=== PATIENT | female | born 1980 | race Caucasian/White ===

== ENCOUNTER 2020-05-14 10:39 | Inpatient (IN) | payer OTHER ==
--- NOTE | 2020-05-14 10:56 | BHS.RME ---
Substance Use & Tx History - Substance Use History Alcohol Substance amount: 3 pints whiskey Frequency of use: Daily Substance route: Oral Date of Last Use: 05/13/20 (started age 13) Heroin Substance amount: 12 bags Frequency of use: Daily Substance route: Inhalation (ex: sniffing or snorting) Date of Last Use: 05/13/20 (started age 18) Cocaine-Crack Substance amount: $50 Frequency of use: Daily Substance route: Smoking Date of Last Use: 05/13/20 Marijuana/Hashish Substance amount: 2 pulls Frequency of use: Less than 3 times per week Substance route: Smoking Date of Last Use: 05/11/20 PCP Substance amount: 2 blunts Frequency of use: Less than 3 times per week Substance route: Smoking Date of Last Use: 05/07/20 Nicotine Substance amount: 10 ciggs Frequency of use: Daily Substance route: Smoking Date of Last Use: 05/14/20 Methadone Substance amount: street methadone Frequency of use: Daily Substance route: Oral Date of Last Use: 05/13/20 (since she left the [facility]) Physical/Psych/Mental Status - Behavior General Behavior: Increased activity (restlessness, agitation) Eye Contact: Normal - Cooperativeness Cooperativeness: Cooperative - Thinking Thought Processes: Tight, Logical, Goal Directed - Physical Health Problems Is patient presently having any pain?: No Does patient presently have any injuries (include location): No Does patient currently have a fever: No Is patient : No COWS - Scale Resting Pulse: 0= CO 80 or Below Sweatin= Chills/Flushing Restless Observation: 1= Difficult to Sit Still Pupil Size: 2= Moderately Dilated Bone or Joint Aches: 2= Severe Diffuse Aches Runny Nose/ Eye Tearin= Runny Nose/Eyes GI Upset > 30mins: 3= Vomiting/Diarrhea Tremor Observation: 2= Slight Tremor Visible Yawning Observation: 1= 1-2x During Session Anxiety or Irritability: 4=Extreme Anxiety Goose Flesh Skin: 0=Smooth Skin COWS Score: 18 CIWA Nausea/Vomitin Muscle Tremors: 2 Anxiety: 4-Mod. Anxious/Guarded Agitation: 4-Moderately Restless Paroxysmal Sweats: 5 Orientation: 1-Uncertain about Date Tacttile Disturbances: 0-None Auditory Disturbances: 0-None Visual Disturbances: 0-None Headache: 1-Very Mild CIWA-Ar Total Score: 20
--- OUTSIDE RECORDS SUMMARY | 2020-05-14 11:05 | XMS ---
:1980 Author Organization [facility] Care Team Providers Name Role Phone ED STAFF JUANJO MCCRAY Unavailable Unavailable Emma Galicia Unavailable [phone] Emma Galicia Unavailable [phone] Jerzy Reyna Unavailable [phone] YANI STALEY Unavailable Unavailable ED STAFF PHYSICIAN Unavailable Unavailable ED STAFF PHYSICIAN, STAFF Unavailable Unavailable Bambi PULP BEATER, PULP BEATER Kishore Unavailable [phone] Bambi PULP BEATER, PULP BEATER Kishore Unavailable [phone] CAINFOX GONZALEZ CARLOS Unavailable Unavailable ED STAFF PHYSICIANJOHNATHON Unavailable Unavailable [facility] Unavailable Unavailable Mayela-Murillo, Maria Unavailable [phone] Mayela-Murillo, Maria Unavailable [phone] ANKIT AGUILAR MD Unavailable Unavailable MARIA ISABEL Gómez Unavailable Unavailable MD ALVERTO Unavailable Unavailable AVANI Unavailable Unavailable MD GLEN Unavailable Unavailable Cain QUINTANA Unavailable Unavailable MEENUIGNED Unavailable Unavailable Cornelio Unavailable [phone] Cornelio Unavailable [phone] DIA WILSON Unavailable Unavailable ED STAFF PHYSICIAN Unavailable Unavailable Re-disclosure Warning The records that you are about to access may contain information from federally- assisted alcohol or drug abuse programs. If such information is present, then the following federally mandated warning applies: This information has been disclosed to you from records protected by federal confidentiality rules (42 CFR part 2). The federal rules prohibit you from making any further disclosure of this information unless further disclosure is expressly permitted by the written consent of the person to whom it pertains or as otherwise permitted by 42 CFR part 2. A general authorization for the release of medical or other information is NOT sufficient for this purpose. The Federal rules restrict any use of the information to criminally investigate or prosecute any alcohol or drug abuse patient.The records that you are about to access may contain highly sensitive health information, the redisclosure of which is protected by Article 27-F of the [facility] Public [facility] law. If you continue you may haveaccess to information: Regarding HIV / AIDS; Provided by facilities licensed or operated by the [facility] Office of Mental Health; or Provided by the [facility] Office for People With Developmental Disabilities. If such information is present, then the following [facility] mandated warning applies: This information has been disclosed to you from confidential records which are protected by state law. State law prohibits you from making any further disclosure of this information without the specific written consent of the person to whom it pertains, or as otherwise permitted by law. Any unauthorized further disclosure in violation of state law may result in a fine or senior care sentence or both. A general authorization for the release of medical or other information is NOT sufficient authorization for further disclosure. Encounters Encounter Providers Location Date Indications Data Source(s ) Emergency Attender: JUANJO METCALF H 05/10/2020 [facility] STAFF 10:09:00 AM Medical Taye gómez PHYSICIANAttender: EDT - STAFF ED STAFF 05/10/2020 PHYSICIANAdmitter: 11:59:00 AM [facility]ALL ED STAFF EDT PHYSICIANReferrer: ZUNASSIGNED Patient discharged. OutpatientOFFICE/OUTPATIENT Attender: Positive 04/24/2020 NEXTGEN VISIT, VIMAL Gonzalez Cain Directions 12:50:00 PM ([facility] EDT - [facility] 04/24/2020 Medical 12:50:00 PM Center) EDT Individual Psychotherapy (30 Attender: Positive 04/24/2020 NEXTGEN Min) Jerzy Mayorga Directions 09:41:00 AM ([facility] EDT - [place] 04/24/2020 Medical 09:41:00 AM Center) EDT Emergency Attender: H 04/21/2020 [facility] ED 09:57:00 AM [place] STAFF EDT - Medical PHYSICIANRefe 04/21/2020 Center rrer: STAFF 11:44:00 AM ED STAFF EDT PHYSICIAN Patient discharged. Outpatient Attender: CARLOS H 04/18/2020 [facility] Janak ephalex CAIN ARNABAdmitter: 12:00:00 PM EDT Medical Center CARLOS CAIN CARLOS Attender: Carlos Positive 04/18/2020 NEXTGEN ( [facility] Cain MD Directions 12:00:00 PM EDT [facility] - 04/18/2020 Medical 12:00:00 PM EDT Center) Psychiatric Attender: Jerzy Mayorga Positive 04/18/2020 NEX TGEN ([facility] Diagnostic Axel Directions 09:47:00 AM EDT [facility] Interview (45+ - 04/18/2020 Medical Min) 09:47:00 AM EDT Center) Inpatient Attender: WILLIE SHIN-1D 04/10/2020 [facility] SURVILMASHANYGEORGIEdmitter 04:55:00 PM EDT Hospital : [facility] 04/16/2020 09:59:00 PM EDT Patient discharged. Outpatient ST 04/10/2020 02:41:00 PM EDT - [address] [place] [address] 05:49:00 PM EDT Patient discharged. Emergency Attender: JUANJO ED STAFF H 04/05/2020 10:34:00 AM [facility] PHYSICIANAttender: STAFF ED EDT - 04/05/2020 [facility] STAFF PHYSICIANAdmitter: 01:58:00 PM EDT [facility] ED STAFF PHYSICIAN Patient discharged. Inpatient Attender: KATIE ALVARES H-HAL6 04/03/2020 01:02:00 [facility] ALESSANDRAWAttender: STAFF ED PM EDT - 04/04/2020 [facility] STAFF PHYSICIANAdmitter: 08:00:00 PM EDT KATIE KERNeferrer: KATIE WILSON Patient discharged. Emergency Attender: JOHNATHON ED STAFF H 02/25/2020 04:55:00 PM [facility] PHYSICIANAttender: STAFF ED EDT - 02/25/2020 [facility] STAFF PHYSICIANAdmitter: JOHNATHON 07:11:00 PM EDT ED STAFF PHYSICIAN Patient discharged. Attender: VIVIEN [facility] 01/17/2020 12:09:00 NEXTGEN ([facility] Bambi NPAttender: Clinic PM EDT - 01/17/2020 [facility] Warren Axel 12:09:00 PM EDT Ce nter) Emergency Attender: ED STAFF H 01/11/2020 12:59:00 [facility] PHYSICIANAttender: PM EDT - 01/11/2020 Medical Center STAFF ED STAFF 02:28:00 PM EDT PHYSICIANAdmitter: ED STAFF PHYSICIAN Patient discharged. Emergency Attender: STAFF ED STAFF H 01/05/2020 06:48:00 PM [facility] PHYSICIAN EDT - 01/06/2020 06:48:00 Center AM EDT Patient discharged. Emergency Attender: STAFF ED STAFF 12/27/2019 06:52:00 PM [facility] Medical PHYSICIAN EDT - 12/28/2019 02:57:00 Center AM EDT Patient discharged. [facility] 12/27/2019 NE XTGEN ([facility] 06:18:00 PM EDT - [facility] 12/27/2019 Medical 06:18:00 PM EDT Center) Attender: Jerzy 12/21/2019 Luis Daniel EXT ([facility] 05:22:00 PM EDT - [facility] 12/21/2019 Medical 05:22:00 PM EDT Center) OutpatientOFFICE/ Attender: VIVIEN Novak [facility] 12/19/2019 JOSE ([facility] OUTPATIENT VISITBambi NPAttender: Clinic 01:58:00 PM EDT - [facility] Jerzy Mayorga Axel 12/19/2019 Medical 01:58:00 PM EDT Center) Outpatient Attender: [facility] 11/11/2019 GSI ([facility] 05:00:18 AM EDT [facility]) Patient admitted. Attender: [facility] 10/28/2019 VALERI EN ([facility] 01:59:00 PM EST [facility] Medical 10/28/2019 Center) 01:59:00 PM EST OutpatientOFFICE/ Attender: VIVIEN Novak [facility] 10/28/2019 JOSE ([facility] OUTPATIENT VISITBambi NPAttender: Clinic 11:11:00 AM EST - [facility] Medical [facility] Jerzy Mayorga Axel 10/28/2019 Center) 11:11:00 AM EST Emergency Attender: JUANJO Yee 10/24/2019 [facility] ED STAFF 10:27:00 AM EST - Medical Center PHYSICIANAttender: 10/24/2019 STAFF ED STAFF 12:13:00 PM EST PHYSICIANAdmitter: JUANJO ED STAFF PHYSICIAN Patient discharged. 10/24/2019 12:00:00 AM [facility] Emergency Attender: JUANJO ED H 09/15/2019 03:42:00 AM [facility] Medical STAFF PHYSICIANAttender: EST - 09/15/2019 02:56 :00 Center STAFF ED STAFF PM EST PHYSICIANAdmitter: JUANJO ED STAFF PHYSICIAN Patient discharged. Individual Attender: [facility] 09/07/2019 NEXTGE N ([facility] ([facility] 03:44:00 PM EST - [place] Min) 09/07/2019 Medical 03:44:00 PM [facility]) OutpatientOFFICE/OUTP Attender: Mental Health 08/26/2019 NEXTGEN ([facility], [facility] 11:36:00 AM [facility] Galicia 08/26/2019 Medical 11:36:00 AM [facility]) Outpatient Attender: 08/26/2019 [facility] EMMA 10:05:00 AM [facility] MAIRA ISABEL CARTER RAdmitter: EMMA Gómez Attender: [facility] 08/26/2019 NEXTGE N ([facility] 10:05:00 AM EST - [place] 08/26/2019 Medical 10:05:00 AM [facility]) Initial Eval W/ Med Attender: Mental Health 07/27/2019 NE XTGEN ([facility] 03:22:00 PM EST - [place] 07/27/2019 Medical 03:22:00 PM [facility]) Attender: [facility] 07/22/2019 NEXTGE N ([facility] 10:58:00 AM EST - [place] 07/22/2019 Medical 10:58:00 AM [facility] Center) Individual Attender: [facility] 07/14/2019 NEXTGE N ([facility] ([facility] 10:33:00 AM EST - [place] Min) 07/14/2019 Medical 10:33:00 AM EST Center) Attender: [facility] 07/12/2019 NEXTGE N ([facility] 01:23:00 PM EST - [place] 07/12/2019 Medical 01:23:00 PM EST Center) Emergency Attender: JOHNATHON Yee 07/05/2019 [facility] ED STAFF 08:07:00 PM [facility] PHYSICIANAttender 07/05/2019 : STAFF ED STAFF 09:02:00 PM EST PHYSICIANAdmitter : JOHNATHON ED STAFF PHYSICIAN Patient discharged. Psychiatric Attender: [facility] 06/29/2019 NEXTG EN ([facility] 01:04:00 PM EST - [place] Interview (45+ Min) 06/29/2019 Medic al 01:04:00 PM EST Center) Outpatient Attender: YANI Yee 06/29/2019 [facility] CORNELIO 10:05:00 AM [facility] AURELIOAAdmitter: YANI LOMELI Attender: [facility] 06/29/2019 NEXTGE N ([facility] 10:05:00 AM EST - [place] 06/29/2019 Medical 10:05:00 AM [facility] Center) Emergency Attender: STAFF ED H 06/28/2019 [facility] STAFF PHYSICIAN 10:19:00 PM [facility] 06/29/2019 02:20:00 AM EST Patient discharged. Emergency Admitter: ED STAFF H 06/15/2019 10:38:00 PM [facility] Medical PHYSICIAN EDT - 06/15/2019 11:26:00 Center PM EDT Patient discharged. Emergency H 05/22/2019 04:58:00 PM EDT - [address] [place] [address] 09:45:00 PM EDT Patient discharged. Emergency H 05/10/2019 08:37:00 PM EDT - [address] [place] [address] 12:30:00 AM EDT Patient discharged. Emergency H 04/22/2019 11:18:00 PM EDT - [address] [place] [address] 06:32:00 AM EDT Patient discharged. Emergency H 04/14/2019 04:37:00 AM EDT - [address] [place] [address] 05:31:00 AM EDT Patient discharged. Emergency H 04/06/2019 12:17:00 AM EDT - [facility] 01:37:00 AM EDT Patient discharged. Outpatient Attender: ANKIT SHIN 01/06/2019 01:54:00 PM [facility] JIMENEZdmitter: XUAN EDT - 01/06/2019 [facility] 06:03:00 PM EDT Patient discharged. Outpatient 12/02/2018 11:54:30 AM EDT GSI ([facility]) Outpatient 12/02/2018 11:54:27 AM EDT GS ([facility]) Medications Medication Brand Start Product Dose Route Administrative Pharmacy [facility] Indications Reaction Description Data Name Date Form Instructions Instructions Source(s) Buprenorphi Suboxo SUBLIN active bupre norphin NEXTGEN ne 8 MG / ne 8 2019 {film GUAL e 8 MG / (Alis t Naloxone 2 mg-2 12:00: } naloxone 2 J osephs MG Oral mg 00 AM [facility] sublin EDT Sublingual Center ) [Suboxone] gual Film Suboxone 8 film [Suboxone] mg-2 mg sublingual film Lurasidone Latuda ORAL active lurasido ne NEXTGEN Hydrochlori 60 mg 2019 {tabl hydrochlori d ([facility] de 60 MG tablet 12:00: et} e 60 MG Oral [place] Oral Tablet 00 AM Tablet Medic al [Latuda] EDT [Latuda] Center) Latuda 60 mg tablet aripiprazol Abilif ORAL active aripipr azole NEXTGEN e 15 MG y 15 2019 {tabl 15 MG Oral (Alis t Oral Tablet mg 12:00: et} Tablet [place] phs [Abilify] tablet 00 AM [Abilify] Me dical Abilify 15 EDT Center) mg tablet Sertraline Zoloft .5 ORAL active sertrali ne NEXTGEN 100 MG Oral 100 mg 2019 {tabl 100 MG Ora l (Saint Tablet tablet 12:00: et} Tablet [place] [Zoloft] 00 AM [Zoloft] Medica l Zoloft 100 EDT Center) mg tablet Sertraline Zoloft .5 ORAL complet Sertral ine NEXTGEN 100 MG Oral 100 mg 2019 {tbl} ed 100 MG Ora l (Saint Tablet tablet 12:00: Tablet [place] [Zoloft] 00 AM [Zoloft] Medica l Zoloft 100 [facility] Center) mg tablet aripiprazol Abilif ORAL complet aripip razole NEXTGEN e 15 MG y 15 2019 {tbl} ed 15 MG Oral (Alis t Oral Tablet mg 12:00: Tablet [place] phs [Abilify] tablet 00 AM [Abilify] Ut dicde Abilify 15 [facility]) mg tablet aripiprazol Abilif ORAL complet aripip razole NEXTGEN e 15 MG y 15 2019 {tbl} ed 15 MG Oral (Alis t Oral Tablet mg 12:00: Tablet [place] phs [Abilify] tablet 00 AM [Abilify] [facility] Abilify 15 [facility]) mg tablet Naltrexone naltre ORAL complet take 1 NEXTGEN hydrochlori xone 2019 {tbl} ed tablet by (S aint de 50 MG 50 mg 12:00: oral route Annia sephs Oral Tablet tablet 00 AM every day [facility]) 50 mg tablet Sertraline Zoloft ORAL complet Sertral ine NEXTGEN 100 MG Oral 100 mg 2019 {tbl} ed 100 MG Ora l (Saint Tablet tablet 12:00: Tablet [place] [Zoloft] 00 AM [Zoloft] Medica l Zoloft 100 [facility] Center) mg tablet Naltrexone naltre ORAL complet take 1 NEXTGEN hydrochlori xone 2018 {tbl} ed tablet by (S aint de 50 MG 50 mg 12:00: oral route Annia sephs Oral Tablet tablet 00 AM every day [facility]) 50 mg tablet aripiprazol Abilif ORAL complet aripip razole NEXTGEN e 15 MG y 15 2018 {tbl} ed 15 MG Oral (Alis t Oral Tablet mg 12:00: Tablet [place] ph[facility] [Abilify] tablet 00 AM [Abilify] Ut dical Abilify 15 [facility]) mg tablet Sertraline Zoloft ORAL complet Sertral ine NEXTGEN 100 MG Oral 100 mg 2018 {tbl} ed 100 MG Ora l (Saint Tablet tablet 12:00: Tablet [place] [Zoloft] 00 AM [Zoloft] Medica l Zoloft 100 EST Center) mg tablet Sertraline Zoloft ORAL complet Sertral ine NEXTGEN 25 MG Oral 25 mg 2019 {tbl} ed 25 MG Oral ( Saint Tablet tablet 12:00: Tablet [place] [Zoloft] 00 AM [Zoloft] Medica l Zoloft 25 EST [place]) mg tablet Medication administered onsite Mirtazapine 15 Remeron 15 mg 06/29/2019 1.00 ORAL completed Mirtazapine NEXTGEN MG Oral Tablet tablet 12:00:00 AM {tbl} 15 MG Oral (Saint [Remeron] EST Tablet [place] Remeron 15 mg [Remeron] M edical tablet Center) Sertraline 100 Zoloft 100 mg 06/29/2019 1.00 ORAL completed Sertraline NEXTGEN MG Oral Tablet tablet 12:00:00 AM {tbl} 100 MG Oral (Saint [Zoloft] EST Tablet [place] Zoloft 100 mg [Zoloft] Me dical tablet Center) gabapentin 600 gabapentin 600 06/29/2019 1.00 ORAL completed take 1 NEXTGEN MG Oral Tablet mg tablet 12:00:00 AM {tbl} tablet by ([facility] gabapentin 600 EST oral route 3 [place] mg tablet times every ical day Center) 24 HR Effexor XR 75 06/29/2019 1.00 ORAL completed 24 HR NEXTGEN venlafaxine 75 mg 12:00:00 AM {capsu v enlafaxine ([facility] MG Extended capsule,extend EST le} 75 MG [place] Release Oral ed release Extend ed Medical Capsule Release Oral Cent er) [Effexor] Capsule Effexor XR 75 [Effexor] mg capsule,extend ed release Naltrexone naltrexone 50 06/29/2019 1.00 ORAL completed take 1 NEXTGEN hydrochloride mg tablet 12:00:00 AM {tbl} tablet by ([facility] 50 MG Oral EST oral route Janak ephs Tablet every day Medical naltrexone 50 [place] ) mg tablet Sertraline 100 sertraline 100 2 completed [facility] MG Oral Tablet mg Tablet, [place] sertraline 100 Ordered By: Medical [facility] Ordered By: MDDirections: [facility] Darlin, 2 tablet oral MDDirections: daily 2 tablet oral daily 24 HR venlafaxine 75 1 completed [facility] venlafaxine 75 mg Darin hs MG Extended capsule,extend Medical Release Oral ed release C enter Capsule 24hr, Ordered venlafaxine 75 By: Essanne marie mg Mikesef, capsule,extend MDDirections: ed release 1 capsule oral 24hr, Ordered daily By: Gail Washburn MDDirections: 1 capsule oral daily Mirtazapine 15 mirtazapine 15 1 completed [facility] MG Oral Tablet mg Tablet, [place] mirtazapine 15 Ordered By: Medical mg Tablet, Gail Washburn [place] Ordered By: MDDirections: Gail Washburn, 1 tablet oral MDDirections: daily at 1 tablet oral bedtime daily at bedtime 200 ACTUAT albuterol 2 completed Albuterol 0.09 sulfate 90 mcg [place] MG/ACTUAT HFA Aerosol Med ical Metered Dose Inhaler, Joselito ter Inhaler Ordered By: albuterol Tariq Titsy sulfate 90 mcg Angelina Valente, HFA Aerosol FNPDirections: Inhaler, 2 puff by Ordered By: inhalation Alburtis Titsy every six Angelina Valente, hours PRN FNPDirections: shortness of 2 puff by breath inhalation every six hours PRN shortness of breath aripiprazole aripiprazole 1 completed Abilify (Abilify 30 MG Oral MyCite Janak mccray MyCite) 30 mg Tablet with Medical tablet with Sensor Center sensor and patch, Ordered By: Gail Washburn MDDirections: 1 tablet oral daily olanzapine 10 OLANZapine 10 1 completed [facility] MG Oral Tablet mg Tablet, [place] OLANZapine 10 Ordered By: Medical mg Tablet, Gail Washburn [place] Ordered By: MDDirections: Gail Washburn, 1 tablet oral MDDirections: daily at 1 tablet oral bedtime daily at bedtime gabapentin 300 gabapentin 300 2 completed [facility] MG Oral mg Capsule, Darin hs Capsule Ordered By: Medic al gabapentin 300 Silvano Martin Center mg Capsule, Azucena, Ordered By: MDDirections: Silvano Martin 2 capsule oral Azucena, three times a MDDirections: day 2 capsule oral three times a day Sertraline 50 sertraline 50 3 completed [facility] MG Oral Tablet mg Tablet, [place] sertraline 50 Ordered By: Medical mg Tablet, Johnathon Center Ordered By: Johnathon Hamm MDDirections: Hansel, 3 tablet oral MDDirections: daily on 3 tablet oral waking daily on waking 24 HR venlafaxine 75 1 completed venlafaxine 75 mg Darin hs MG Extended capsule,extend Medical Release Oral ed release C enter Capsule 24hr, Ordered venlafaxine 75 By: Silvano dueñas Zeng, capsule,extend MDDirections: ed release 1 capsule oral 24hr, Ordered daily By: Silvano Zeng, MDDirections: 1 capsule oral daily 24 HR venlafaxine 75 1 completed venlafaxine 75 mg Darin hs MG Extended capsule,extend Medical Release Oral ed release C enter Capsule 24hr, Ordered venlafaxine 75 By: Johnathon Hamm, capsule,extend MDDirections: ed release 1 capsule oral 24hr, Ordered daily By: Johnathon Hamm MDDirections: 1 capsule oral daily 200 ACTUAT albuterol 2 completed Albuterol 0.09 sulfate 90 mcg [place] MG/ACTUAT HFA Aerosol Med ical Metered Dose Inhaler, Joselito ter Inhaler Ordered By: albuterol Silvano Martin sulfate 90 mcg Azucena, HFA Aerosol MDDirections: Inhaler, 2 puff by Ordered By: inhalation Silvano Martin every six Azucena, hours PRN MDDirections: shortness of 2 puff by breath inhalation every six hours PRN shortness of breath Mirtazapine 15 mirtazapine 15 1 completed [facility] MG Oral Tablet mg Tablet, [place] mirtazapine 15 Ordered By: Medical mg TabletSilvano Joselito ter Ordered By: Silvano Zeng MDDirections: Zeng, 1 tablet oral MDDirections: daily at 1 tablet oral bedtime daily at bedtime buspirone busPIRone 10 1 completed [facility] hydrochloride mg Tablet, [place] 10 MG Oral Ordered By: Me dical Tablet Silvano Martin [place] busPIRone 10 Zeng, mg Tablet, MDDirections: Ordered By: 1 tablet oral Silvano Martin three times a MDDirections: 1 tablet oral three times a day Sertraline 100 sertraline 100 2 completed [facility] MG Oral Tablet mg Tablet, [place] sertraline 100 Ordered By: Medical mg TabletSilvano Joselito ter Ordered By: Silvano Zeng MDDirections: Zeng, 2 tablet oral MDDirections: daily at 2 tablet oral bedtime daily at bedtime aripiprazole 5 aripiprazole 5 1 completed [facility] MG Oral Tablet mg TabletTico aripiprazole 5 Ordered By: Medical mg Tablet, Maranda Center Ordered By: Maranda Ortez MDDirections: Pérez, 1 tablet oral MDDirections: daily for mood 1 tablet oral stabilization daily for mood stabilization Insurance Providers Payer name Policy type Policy ID Covered Covered alliance party's Policy P inder / Coverage alliance party ID relationship to [place] [employer] ormation type [place] BLUE CROSS O [id number] BLUE CROSS O [id number] HEALTHPLUS W [id number] 01 [id number] EMPIRE BC BS [id number] SP [id number] HEALTHPLUS W [id number] 01 [id number] HEALTHPLUS W [id number] 01 [id number] SELF PAY 000 Self 000 MEDICAID INP [id number] Self [id number] U REHAB MMC EMPIRE [id number] Self [id number] HEALTH PLUS W [id number] 01 [id number] HEALTHPLUS W [id number] 01 [id number] AMERIGROUP W [id number] 01 [id number] BLUE CROSS [id number] self [id number] BLUE CROSS O [id number] 01 [id number] SELF PAY SP INSURANCE MEDICAID [id number] SP [id number] RW PART C [id number] SP [id number] SELF PAY 00 Self 00 MEDICAID OP [id number] Self [id number] MMC EMPIRE [id number] Self [id number] HEALTH PLUS Problems, Conditions, and Diagnoses Code Display Name Description Problem Type Effective Data Dates Source(s) 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 [facility]) Z53.20 Procedure and PROC/TRTMT NOT CRD Diagnosis 05/10/2020 Sethchinedu blackwell [facility] treatment not OUT BEC PT 10:09:00 AM Medical carried out DECISION FOR RUST EDT Center because of REASONS patient's decision for unspecified reasons Z04.89 ENCOUNTER FOR ENCOUNTER FOR Diagnosis 05/10/2020 [facility] EXAMINATION AND EXAMINATION AND 10:09:00 AM Med ical OBSERVATION FOR OBSERVATION FOR EDT Cent er OTH REASONS OTH REASONS F17.210 Nicotine NICOTINE Diagnosis 04/21/2020 [facility] dependence, DEPENDENCE, 09:57:00 AM Medical cigarettes, CIGARETTES, EDT Center uncomplicated UNCOMPLICATED F11.10 Opioid abuse, OPIOID ABUSE, Diagnosis 04/21/2020 [facility] Annia lofton uncomplicated UNCOMPLICATED 09:57:00 AM Medical EDT Center F31.9 Bipolar disorder, BIPOLAR DISORDER, Diagnosis 04/21/2020 [facility] unspecified UNSPECIFIED 09:57:00 AM Medical EDT Center R40.2410 Rito coma scale RITO COMA SCALE Diagnosis 0 [facility] score 13-15, SCORE 13-15, 10:34:00 AM Medical unspecified time UNSPECIFIED TIME EDT Ce nter F10.10 Alcohol abuse, ALCOHOL ABUSE, Diagnosis 04/05/2020 [facility] uncomplicated UNCOMPLICATED 10:34:00 AM Medical EDT Center F19.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 PSYCHOACTIVE Diagnosis 0 [facility] substance abuse, SUBSTANCE ABUSE, 10:34:00 AM edical uncomplicated UNCOMPLICATED EDT Center J44.9 Chronic CHRONIC Diagnosis 04/04/2020 [facility] obstructive OBSTRUCTIVE 08:00:00 PM Medical pulmonary disease, PULMONARY DISEASE, EDT Center unspecified UNSPECIFIED Y90.2 Blood alcohol BLOOD ALCOHOL Diagnosis 04/04/2020 [facility] Annia lofton level of 40-59 LEVEL OF 40-59 08:00:00 PM Medic al mg/100 ml MG/100 ML EDT Center F10.239 Alcohol dependence ALCOHOL DEPENDENCE Diagnosis 0 [facility] with withdrawal, WITH WITHDRAWAL, 01:02:00 PM edical unspecified UNSPECIFIED EDT Center 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 Diagnosis 0 [facility] with intoxication, WITH INTOXICATION, 04:55:00 PM Medical unspecified UNSPECIFIED EDT Center Y99.9 Unspecified UNSPECIFIED Diagnosis 01/11/2020 [facility] external cause EXTERNAL CAUSE 12:59:00 PM Medic al status STATUS EDT Center Y92.[address] IN UNSP Diagnosis 01/11/2020 [facility] in unspecified NON-INSTITUT 12:59:00 PM Medical non-institutional (PRIVATE) EDT Center (private) RESIDENCE PLACE residence as the place of occurrence of the external cause Y93.89 Activity, other ACTIVITY, OTHER Diagnosis 01/11/2020 Alis Doshi specified SPECIFIED 12:59:00 PM Medical EDT Center W10.9XXA Fall (on) (from) FALL (ON) (FROM) Diagnosis 01/11/2020 Sa jessica Doshi unspecified stairs UNSPECIFIED STAIRS 12:59:00 PM Medical and steps, initial AND STEPS, INIT EDT C enter encounter ENCNTR S93.401A Sprain of SPRAIN OF Diagnosis 01/11/2020 [facility] unspecified UNSPECIFIED 12:59:00 PM Medical ligament of right LIGAMENT OF RIGHT EDT Center ankle, initial ANKLE, INIT ENCNTR encounter F10.129 Alcohol abuse with ALCOHOL ABUSE WITH Diagnosis 0 [facility] intoxication, INTOXICATION, 06:48:00 PM Medical unspecified UNSPECIFIED EDT Center F19.24 Other psychoactive OTH PSYCHOACTIVE Diagnosis 12/27/2019 [facility] substance SUBSTANCE 06:52:00 PM Medical dependence with DEPENDENCE W MOOD EDT Ce nter psychoactive DISORDER substance-induced mood disorder F91.9 Conduct disorder, CONDUCT DISORDER, Diagnosis 12/27/2019 [facility] unspecified UNSPECIFIED 06:52:00 PM Medical EDT Center F10.120 Alcohol abuse with ALCOHOL ABUSE WITH Diagnosis 0 [facility] intoxication, INTOXICATION, 03:42:00 AM Medical uncomplicated UNCOMPLICATED EST Center F14.120 Cocaine abuse with COCAINE ABUSE WITH Diagnosis 0 [facility] intoxication, INTOXICATION, 03:42:00 AM Medical uncomplicated UNCOMPLICATED EST Center F33.2 Major depressive MAJOR DEPRESSV Diagnosis 08/26/2019 Alis Doshi disorder, DISORDER, 10:05:00 AM Medical recurrent severe RECURRENT SEVERE EST Ce nter without psychotic W/O PSYCH FEATURES features Z76.0 Encounter for ENCOUNTER FOR Diagnosis 07/05/2019 [facility] issue of repeat ISSUE OF REPEAT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 dioxide, 22-30 <content [facility] total styleCode="Bold"> [place] [Moles/volume] in Carbon Dioxide Medical Serum or Plasma </content>22 Center MEQ/L<content styleCode="Italic s"> (22-30 MEQ/L)</content> UNK > 60 <content Saint styleCode="Bold"> [place] EGFR </content>73 Medical GFR<content Center styleCode="Italic s"> (> 60 GFR)</content> Creatinine 0.5-1.3 <content Saint [Mass/volume] in styleCode="Bold"> Darin hs Serum or Plasma Creatinine Medical </content>0.9 Center MG/DL<content styleCode="Italic s"> (0.5-1.3 MG/DL)</content> Calcium 8.4-10. <content Saint [Mass/volume] in 2 styleCode="Bold"> Darin hs Serum or Plasma Calcium Medical </content>9.7 Center MG/DL<content styleCode="Italic s"> (8.4-10.2 MG/DL)</content> Glucose 74-106 <content [facility] [Mass/volume] in styleCode="Bold"> Darin hs Serum or Plasma Glucose Medical </content>81 Center MG/DL<content styleCode="Italic s"> (74-106 MG/DL)</content> Aspartate 14-36 <content [facility] aminotransferase styleCode="Bold"> Darin hs [Enzymatic Aspartate Medical activity/volume] Aminotransferase Center in Serum or Plasma (AST) </content>23 IU/L<content styleCode="Italic s"> (14-36 IU/L)</content> Alkaline 38-126 <content [facility] phosphatase styleCode="Bold"> [place] [Enzymatic Alkaline Medical activity/volume] Phosphatase (ALP) Cente r in Serum or Plasma </content>61 IU/L<content styleCode="Italic s"> (38-126 IU/L)</content> Alanine 7-30 <content [facility] aminotransferase styleCode="Bold"> Darin hs [Enzymatic Alanine Medical activity/volume] Aminotransferase Center in Serum or Plasma (ALT) </content>11 IU/L<content styleCode="Italic s"> (7-30 IU/L)</content> Bilirubin.total 0.2-1.3 <content [facility] [Mass/volume] in styleCode="Bold"> Darin hs Serum or Plasma Bilirubin Total Medical </content>0.4 Center MG/DL<content styleCode="Italic s"> (0.2-1.3 MG/DL)</content> Albumin 3.5-5.0 <content Saint [Mass/volume] in styleCode="Bold"> Darin hs Serum or Plasma Albumin Medical </content>4.8 Center G/DL<content styleCode="Italic s"> (3.5-5.0 G/DL)</content> ID Date Data Source [id number] 04/03/2020 12:00:00 AM EDT [facility] Name Value Range Interpretation Code Description Data Layne rce(s) Supporting Document(s ) 2019-nCoV [facility] RNA XXX GUTIERREZ+probe- Imp This lab was ordered by [facility] and reported by [employer] NTD. ID Date Data Source Urinalysis.[id number] 12/27/2019 09:40:00 PM EDT [facility] 0 Name Value Range Interpretation Description Data Sup porting Code Source(s) Document(s ) UNK CLEAR <content Saint styleCode="Jonatan [place] d">Urine Medical Clarity Center </content>HAZY <content styleCode="Emily lics"> (CLEAR )</content> Color of Urine YELLOW <content Saint styleCode="Jonatan [place] d">Color, Medical Urine Center </content>YELL OW <content styleCode="Emily lics"> (YELLOW )</content> Glucose NEGATIVE <content Saint [Mass/volume] styleCode="Jonatan [place] in Urine by d">Urine Medical Test strip Glucose Center </content>NEGA TIVE MG/DL<content styleCode="Emily lics"> (NEGATIVE MG/DL)</conten t> UNK NEGATIVE <content Saint styleCode="Jonatan [place] d">Urine Medical Bilirubin Center </content>NEGA TIVE <content styleCode="Emily lics"> (NEGATIVE )</content> Ketones NEGATIVE <content Saint [Mass/volume] styleCode="Jonatan [place] in Urine by d">Urine Medical Test strip Ketone Center </content>NEGA TIVE MG/DL<content styleCode="Emily lics"> (NEGATIVE MG/DL)</conten t> pH of Urine by 4.5-8.0 <content [facility] Test strip styleCode="Jonatan [place] d">Urine pH Medical </content>6.0 Center <content styleCode="Emily lics"> (4.5-8.0 )</content> Specific 1.015-1.02 Below low normal <content [facility] gravity of 5 styleCode="Jonatan [place] Urine by Test d">Urine Medical strip Specific Center [place] </content><= 1.005 L<content styleCode="Emily lics"> (1.015-1.025 )</content> Hemoglobin NEGATIVE <content Saint [Presence] in styleCode="Jonatan [place] Urine by Test d">Urine Blood Medical strip </content>LARG Center E <content styleCode="Emily lics"> (NEGATIVE )</content> UNK 0-3 <content Saint styleCode="Jonatan [place] d">Urine Red Medical Blood Cell Center </content>3-5 HPF<content styleCode="Emily lics"> (0-3 HPF)</content> Nitrite NEGATIVE <content Saint [Presence] in styleCode="Jonatan Doshi Urine by Test d">Urine Medical strip Nitrite Center </content>NEGA TIVE <content styleCode="Emily lics"> (NEGATIVE )</content> Protein NEGATIVE <content Saint [Mass/volume] styleCode="Jonatan Claires in Urine by d">Urine Medical Test strip Protein Center </content>NEGA TIVE MG/DL<content styleCode="Emily lics"> (NEGATIVE MG/DL)</conten t> Urobilinogen 0.2-1.0 <content Saint [Units/volume] styleCode="Jonatan Claires in Urine by d">Urine Medical Test strip Urobilinogen Center </content>0.2 MG/DL<content styleCode="Emily lics"> (0.2-1.0 MG/DL)</conten t> Leukocyte NEGATIVE <content [facility] esterase styleCode="Jonatan Doshi [Presence] in d">Urine Medical Urine by Test Leukocyte Center strip </content>NEGA TIVE <content styleCode="Emily lics"> (NEGATIVE )</content> UNK 0-3 <content Saint styleCode="Jonatan Claires d">Urine White Medical Blood Cell Center </content>0-3 HPF<content styleCode="Emily lics"> (0-3 HPF)</content> UNK NONE SEEN <content Saint styleCode="Jonatan [place] d">Epithelial Medical Cell Center </content>5 - 10 HPF<content styleCode="Emily lics"> (NONE SEEN HPF)</content> ID Date Data Source [facility].[id number] 12/27/2019 09:40:00 PM EDT [facility] -0400 Name Value Range Interpretation Description Data Sup porting Code Source(s) Document(s ) Cannabinoids <content Saint [Presence] in styleCode="Jonatan Doshi Urine by Screen d">Cannabinoid Medical method >50 ng/mL s Center </content>NEGA TIVE NG/ML (Reference Range: not available)<br/ > ID Date Data Source Liver 12/27/2019 09:35:[address] [facility] Profile.[id number] Name Value Range Interpretation Description Data Sup porting Code Source(s) Document(s ) UNK 0.0-0.3 <content Saint styleCode="Bold"> [place] Bilirubin, Direct Medical </content>< 0.2 Center MG/DL<content styleCode="Italic s"> (0.0-0.3 MG/DL)</content> Aspartate 14-36 <content [facility] aminotransferase styleCode="Bold"> Darin hs [Enzymatic Aspartate Medical activity/volume] Aminotransferase Center in Serum or Plasma (AST) </content>25 IU/L<content styleCode="Italic s"> (14-36 IU/L)</content> Alanine 7-30 <content [facility] aminotransferase styleCode="Bold"> Darin hs [Enzymatic Alanine Medical activity/volume] Aminotransferase Center in Serum or Plasma (ALT) </content>11 IU/L<content styleCode="Italic s"> (7-30 IU/L)</content> Bilirubin.total 0.2-1.3 Below low <content Saint [Mass/volume] in normal styleCode="Bold"> Darin hs Serum or Plasma Bilirubin Total Medical </content>< 0.2 Center MG/DL L<content styleCode="Italic s"> (0.2-1.3 MG/DL)</content> Alkaline 38-126 <content [facility] phosphatase styleCode="Bold"> [place] [Enzymatic Alkaline Medical activity/volume] Phosphatase (ALP) Cente r in Serum or Plasma </content>63 IU/L<content styleCode="Italic s"> (38-126 IU/L)</content> Albumin 3.5-5.0 <content [facility] [Mass/volume] in styleCode="Bold"> Darin hs Serum or Plasma Albumin Medical </content>4.7 Center G/DL<content styleCode="Italic s"> (3.5-5.0 G/DL)</content> ID Date Data Source HematologyRou.[id number] 12/27/2019 09:35:00 PM EDT [facility] 0400 Name Value Range Interpretation Description Data Sup porting Code Source(s) Document(s ) Leukocytes 4.4-11.0 <content [facility] [#/volume] in styleCode="Bold [place] Blood by ">White Blood Medical Automated count Cell Count Center </content>10.87 KCUMM<content styleCode="Ital ics"> (4.4-11.0 KCUMM)</content > Erythrocyte mean 80.0-100 <content [facility] corpuscular .0 styleCode="Bold [place] volume [Entitic ">Mean Medical volume] by Corpuscular Center Automated count Volume </content>87.6 FL<content styleCode="Ital ics"> (80.0-100.0 FL)</content> Hemoglobin 12.3-16. <content Saint [Mass/volume] in 0 styleCode="Bold [place] Blood ">Hemoglobin Medical </content>12.7 Center G/DL<content styleCode="Ital ics"> (12.3-16.0 G/DL)</content> Erythrocytes 4.0-5.1 <content [facility] [#/volume] in styleCode="[place]old [place] Blood by ">Red Blood Medical Automated count Cell Count Center </content>4.27 MCUMM<content styleCode="Ital ics"> (4.0-5.1 MCUMM)</content > Erythrocyte mean 26.0-34. <content [facility] corpuscular 0 styleCode="Bold [place] hemoglobin ">Mean Medical [Entitic mass] Corposcular Center by Automated Hemoglobin count </content>29.7 PG<content styleCode="Ital ics"> (26.0-34.0 PG)</content> Hematocrit 36.0-46. <content Saint [Volume 0 styleCode="[place]old [place] Fraction] of ">Hematocrit Medical Blood by </content>37.4 Center Automated count %<content styleCode="Ital ics"> (36.0-46.0 %)</content> Erythrocyte mean 32.0-37. <content [facility] corpuscular 0 styleCode="Bold [place] hemoglobin ">Mean Corpus. Medical concentration Hgb Center [Mass/volume] by Concentration Automated count (MCHC) </content>34.0 G/DL<content styleCode="Ital ics"> (32.0-37.0 G/DL)</content> Platelet mean 8.0-11.0 <content [facility] volume [Entitic styleCode="[place]old [place] volume] in Blood ">Mean Platelet Medical by Automated Volume Center count </content>10.1 FL<content styleCode="Ital ics"> (8.0-11.0 FL)</content> Platelets 130-400 <content Saint [#/volume] in styleCode="[place]old [place] Blood by ">Platelet Medical Automated count Count Center </content>227 KCUMM<content styleCode="Ital ics"> (130-400 KCUMM)</content > UNK 0 <content Saint styleCode="Bold [place] ">Nucleated Red Medical Blood Cell Center </content>0.0 /100<content styleCode="Ital ics"> (0 /100)</content> Erythrocyte 11.5-14. <content Saint distribution 5 styleCode="[place]old [place] width [Ratio] by ">Red Cell Medical Automated count Distribution Center Width </content>13.8 %<content styleCode="Ital ics"> (11.5-14.5 %)</content> UNK 0.0 <content Saint styleCode="Bold [place] ">Nucleated Red Medical Blood Cell Center Count </content>0.00 KCUMM<content styleCode="Ital ics"> (0.0 KCUMM)</content > ID Date Data Source GFR(Creatinine).[id number] 12/27/2019 09:35:00 PM EDT [facility] 0-0400 Name Value Range Interpretation Code Description Data Layne rce(s) Supporting Document(s ) UNK > 60 Below low normal <content [facility] styleCode="Bold"> Medical Cent er EGFR </content>58 GFR L<content styleCode="Italic s"> (> 60 GFR)</content> ID Date Data Source BMP.[id number] 12/27/2019 09:35:00 PM EDT [facility] Name Value Range Interpretation Description Data Sup porting Code Source(s) Document(s ) Potassium 3.5-5.3 <content Saint [Moles/volume] in styleCode="Bold"> Celso phs Serum or Plasma Potassium Medical </content>4.1 Center MEQ/L<content styleCode="Italic s"> (3.5-5.3 MEQ/L)</content> Sodium 137-145 <content Saint [Moles/volume] in styleCode="Bold"> Celso [facility] Serum or Plasma Sodium Medical </content>140 Center MEQ/L<content styleCode="Italic s"> (137-145 MEQ/L)</content> Creatinine 0.5-1.3 <content Saint [Mass/volume] in styleCode="Bold"> Darin hs Serum or Plasma Creatinine Medical </content>1.1 Center MG/DL<content styleCode="Italic s"> (0.5-1.3 MG/DL)</content> Chloride 98-107 <content Saint [Moles/volume] in styleCode="Bold"> Celso [facility] Serum or Plasma Chloride Medical </content>106 Center MEQ/L<content styleCode="Italic s"> (98-107 MEQ/L)</content> UNK 7-17 <content Saint styleCode="Bold"> [place] BUN </content>13 Medical MG/DL<content Center styleCode="Italic s"> (7-17 MG/DL)</content> Carbon dioxide, 22-30 Below low <content Saint total normal styleCode="Bold"> [place] [Moles/volume] in Carbon Dioxide Medical Serum or Plasma </content>21 Center MEQ/L L<content styleCode="Italic s"> (22-30 MEQ/L)</content> Calcium 8.4-10. <content Saint [Mass/volume] in 2 styleCode="Bold"> Darin hs Serum or Plasma Calcium Medical </content>9.3 Center MG/DL<content styleCode="Italic s"> (8.4-10.2 MG/DL)</content> Glucose 74-106 <content Saint [Mass/volume] in styleCode="Bold"> Darin hs Serum or Plasma Glucose Medical </content>98 Center MG/DL<content styleCode="Italic s"> (74-106 MG/DL)</content> Alanine 7-30 <content [facility] aminotransferase styleCode="Bold"> Darin hs [Enzymatic Alanine Medical activity/volume] Aminotransferase Center in Serum or Plasma (ALT) </content>11 IU/L<content styleCode="Italic s"> (7-30 IU/L)</content> UNK > 60 Below low <content Saint normal styleCode="Bold"> [facility] EGFR </content>58 Medical GFR L<content Center styleCode="Italic s"> (> 60 GFR)</content> Alkaline 38-126 <content Saint phosphatase styleCode="Bold"> [facility] [Enzymatic Alkaline Medical activity/volume] Phosphatase (ALP) Cente r in Serum or Plasma </content>63 IU/L<content styleCode="Italic s"> (38-126 IU/L)</content> Aspartate 14-36 <content [facility] aminotransferase styleCode="Bold"> Darin hs [Enzymatic Aspartate Medical activity/volume] Aminotransferase Center in Serum or Plasma (AST) </content>25 IU/L<content styleCode="Italic s"> (14-36 IU/L)</content> Bilirubin.total 0.2-1.3 Below low <content [facility] [Mass/volume] in normal styleCode="Bold"> Darin hs Serum or Plasma Bilirubin Total Medical </content>< 0.2 Center MG/DL L<content styleCode="Italic s"> (0.2-1.3 MG/DL)</content> Albumin 3.5-5.0 <content Saint [Mass/volume] in styleCode="Bold"> Darin hs Serum or Plasma Albumin Medical </content>4.7 Center G/DL<content styleCode="Italic s"> (3.5-5.0 G/DL)</content> ID Date Data Source Urinalysis.[id number] 09/15/2019 06:00:00 AM [facility] 0 Name Value Range Interpretation Description Data Sup porting Code Source(s) Document(s ) Color of Urine YELLOW <content Saint styleCode="Jonatan Claires d">Color, Medical Urine Center </content>RED <content styleCode="Emily lics"> (YELLOW )</content> Specific 1.015-1.02 Below low normal <content Saint gravity of 5 styleCode="Jonatan Doshi Urine by Test d">Urine Medical strip Specific Center [place] </content><= 1.005 L<content styleCode="Emily lics"> (1.015-1.025 )</content> UNK CLEAR <content Saint styleCode="Jonatan [place] d">Urine Medical Clarity Center </content>Sl CLOUDY <content styleCode="Emily lics"> (CLEAR )</content> UNK NEGATIVE <content Saint styleCode="Jonatan Claires d">Urine Medical Bilirubin Center </content>NEGA TIVE <content styleCode="Emily lics"> (NEGATIVE )</content> Glucose NEGATIVE <content Saint [Mass/volume] styleCode="Jonatan Doshi in Urine by d">Urine Medical Test strip Glucose Center </content>NEGA TIVE MG/DL<content styleCode="Emily lics"> (NEGATIVE MG/DL)</conten t> Ketones NEGATIVE <content Saint [Mass/volume] styleCode="Jonatan Claires in Urine by d">Urine Medical Test strip Ketone Center </content>NEGA TIVE MG/DL<content styleCode="Emily lics"> (NEGATIVE MG/DL)</conten t> Urobilinogen 0.2-1.0 <content Saint [Units/volume] styleCode="Jonatan Claires in Urine by d">Urine Medical Test strip Urobilinogen Center </content>0.2 MG/DL<content styleCode="Emily lics"> (0.2-1.0 MG/DL)</conten t> Nitrite NEGATIVE <content Saint [Presence] in styleCode="Jonatan Claires Urine by Test d">Urine Medical strip Nitrite Center </content>NEGA TIVE <content styleCode="Emily lics"> (NEGATIVE )</content> Hemoglobin NEGATIVE <content Saint [Presence] in styleCode="Jonatan Doshi Urine by Test d">Urine Blood Medical strip </content>LARG Center E <content styleCode="Emily lics"> (NEGATIVE )</content> pH of Urine by 4.5-8.0 <content Saint Test strip styleCode="Jonatan Claires d">Urine pH Medical </content>5.5 Center <content styleCode="Emily lics"> (4.5-8.0 )</content> Protein NEGATIVE <content Saint [Mass/volume] styleCode="Jonatan Doshi in Urine by d">Urine Medical Test strip Protein Center </content>30 MG/DL<content styleCode="Emily lics"> (NEGATIVE MG/DL)</conten t> UNK 0-3 <content Saint styleCode="Jonatan [place] d">Urine White Medical Blood Cell Center </content>5 - 10 HPF<content styleCode="Emily lics"> (0-3 HPF)</content> Leukocyte NEGATIVE <content Saint esterase styleCode="Jonatan Doshi [Presence] in d">Urine Medical Urine by Test Leukocyte Center strip </content>TRAC E <content styleCode="Emily lics"> (NEGATIVE )</content> UNK NONE SEEN <content Saint styleCode="Jonatan [place] d">Epithelial Medical Cell Center </content>10 - 20 HPF<content styleCode="Emily lics"> (NONE SEEN HPF)</content> UNK 0-3 <content Saint styleCode="Jonatan [place] d">Urine Red Medical Blood Cell Center </content>100- 200 HPF<content styleCode="Emily lics"> (0-3 HPF)</content> ID Date Data Source Microbiology.[id number] 09/15/2019 06:00:00 AM EST [facility] 500 Name Value Range Interpretation Code Description Data Layne rce(s) Supporting Document(s ) UNK <item><content [facility] styleCode="Bold"> Medical Cent er Culture Report </content>
<t able><tbody><tr>< td>Specimen Number:</td><td>[id number]</td></tr ><tr><td>Sample Collection Date/Time: </td><td> 0 6:00 AM</td></tr><tr>< td>Specimen Source:</td><td>U RINE</td></tr><tr ><td>Urine Culture:</td><td> Collection Plate Date: 09/15/2019 06:09 </td></tr><tr><td >Culture Status:</td><td>P reliminary </td></tr><tr><td >Culture Report:</td><td>C ulture in progress </td></tr></tbody ></table></item> UNK <item><content [facility] styleCode="Bold"> [facility] Culture Status </content>
<t able><tbody><tr>< td>Specimen Number:</td><td>[id number]</td></tr ><tr><td>Sample Collection Date/Time: </td><td> 0 6:00 AM</td></tr><tr>< td>Specimen Source:</td><td>U RINE</td></tr><tr ><td>Culture Status:</td><td>P reliminary </td></tr><tr><td >Culture Report:</td><td>C ulture in progress </td></tr><tr><td >Urine Culture:</td><td> Collection Plate Date: 09/15/2019 06:09 </td></tr></tbody ></table></item> ID Date Data Source Liver 09/15/2019 06:00:[address] [facility] Profile.[id number] Name Value Range Interpretation Description Data Sup porting Code Source(s) Document(s ) Bilirubin.total 0.2-1.3 Below low <content Saint [Mass/volume] in normal styleCode="Bold"> Darin hs Serum or Plasma Bilirubin Total Medical </content>< 0.2 Center MG/DL L<content styleCode="Italic s"> (0.2-1.3 MG/DL)</content> Alanine 7-30 <content Saint aminotransferase styleCode="Bold"> Darin hs [Enzymatic Alanine Medical activity/volume] Aminotransferase Center in Serum or Plasma (ALT) </content>13 IU/L<content styleCode="Italic s"> (7-30 IU/L)</content> Aspartate 14-36 <content [facility] aminotransferase styleCode="Bold"> Darin hs [Enzymatic Aspartate Medical activity/volume] Aminotransferase Center in Serum or Plasma (AST) </content>29 IU/L<content styleCode="Italic s"> (14-36 IU/L)</content> Alkaline 38-126 <content Saint phosphatase styleCode="Bold"> [facility] [Enzymatic Alkaline Medical activity/volume] Phosphatase (ALP) Cente r in Serum or Plasma </content>57 IU/L<content styleCode="Italic s"> (38-126 IU/L)</content> Albumin 3.5-5.0 <content Saint [Mass/volume] in styleCode="Bold"> Darin hs Serum or Plasma Albumin Medical </content>4.2 Center G/DL<content styleCode="Italic s"> (3.5-5.0 G/DL)</content> UNK 0.0-0.3 <content Saint styleCode="Bold"> [facility] Bilirubin, Direct Medical </content>< 0.2 Center MG/DL<content styleCode="Italic s"> (0.0-0.3 MG/DL)</content> ID Date Data Source HematologyRou.[id number] 09/15/2019 06:00:00 AM [facility] 0500 Name Value Range Interpretation Description Data Sup porting Code Source(s) Document(s ) Leukocytes 4.4-11.0 <content Saint [#/volume] in styleCode="Bold [place] Blood by ">White Blood Medical Automated count Cell Count Center </content>10.22 KCUMM<content styleCode="Ital ics"> (4.4-11.0 KCUMM)</content > Erythrocyte mean 26.0-34. <content [facility] corpuscular 0 styleCode="Bold [place] hemoglobin ">Mean Medical [Entitic mass] Corposcular Center by Automated Hemoglobin count </content>30.1 PG<content styleCode="Ital ics"> (26.0-34.0 PG)</content> Erythrocyte mean 80.0-100 <content [facility] corpuscular .0 styleCode="Bold [place] volume [Entitic ">Mean Medical volume] by Corpuscular Center Automated count Volume </content>88.9 FL<content styleCode="Ital ics"> (80.0-100.0 FL)</content> Erythrocytes 4.0-5.1 Below low normal <content Saint [#/volume] in styleCode="Bold [place] Blood by ">Red Blood Medical Automated count Cell Count Center </content>3.89 MCUMM L<content styleCode="Ital ics"> (4.0-5.1 MCUMM)</content > Hemoglobin 12.3-16. Below low normal <content Saint [Mass/volume] in 0 styleCode="Bold [place] Blood ">Hemoglobin Medical </content>11.7 Center G/DL L<content styleCode="Ital ics"> (12.3-16.0 G/DL)</content> Hematocrit 36.0-46. Below low normal <content Saint [Volume 0 styleCode="Bold [place] Fraction] of ">Hematocrit Medical Blood by </content>34.6 Center Automated count % L<content styleCode="Ital ics"> (36.0-46.0 %)</content> Erythrocyte mean 32.0-37. <content [facility] corpuscular 0 styleCode="Bold [place] hemoglobin ">Mean Corpus. Medical concentration Hgb Center [Mass/volume] by Concentration Automated count (MCHC) </content>33.8 G/DL<content styleCode="Ital ics"> (32.0-37.0 G/DL)</content> Platelet mean 8.0-11.0 <content Saint volume [Entitic styleCode="Bold [place] volume] in Blood ">Mean Platelet Medical by Automated Volume Center count </content>10.4 FL<content styleCode="Ital ics"> (8.0-11.0 FL)</content> UNK 0 <content Saint styleCode="Bold [place] ">Nucleated Red Medical Blood Cell Center </content>0.0 /100<content styleCode="Ital ics"> (0 /100)</content> Erythrocyte 11.5-14. <content Saint distribution 5 styleCode="[place]old [place] width [Ratio] by ">Red Cell Medical Automated count Distribution Center Width </content>12.9 %<content styleCode="Ital ics"> (11.5-14.5 %)</content> Platelets 130-400 <content Saint [#/volume] in styleCode="[place]old [place] Blood by ">Platelet Medical Automated count Count Center </content>236 KCUMM<content styleCode="Ital ics"> (130-400 KCUMM)</content > UNK 0.0 <content [facility] styleCode="B[facility] [place] ">Nucleated Red Medical Blood Cell Center Count </content>0.00 KCUMM<content styleCode="Ital ics"> (0.0 KCUMM)</content > ID Date Data Source GFR(Creatinine).[id number] 09/15/2019 06:00:00 AM [facility] 0-0500 Name Value Range Interpretation Code Description Data Layne rce(s) Supporting Document(s ) UNK > 60 <content [facility] [place] styleCode="Bold"> Medical Cent er EGFR </content>84 GFR<content styleCode="Italic s"> (> 60 GFR)</content> ID Date Data Source CHMROUTINECCDA.[id number] 09/15/2019 06:00:00 AM [facility] -0500 Name Value Range Interpretation Description Data Sup porting Code Source(s) Document(s ) Cannabinoids <content [facility] [Presence] in styleCode="Jonatan [place] Urine by Screen d">Cannabinoid Medical method >50 ng/mL s Center </content>NEGA TIVE NG/ML (Reference Range: not available)<br/ > ID Date Data Source [facility].[id number] 09/15/2019 06:00:00 AM EST [facility] Name Value Range Interpretation Description Data Sup porting Code Source(s) Document(s ) Chloride 98-107 Above high <content [facility] [Moles/volume] in normal styleCode="Bold"> [facility] Serum or Plasma Chloride Medical </content>108 Center MEQ/L H<content styleCode="Italic s"> (98-107 MEQ/L)</content> Potassium 3.5-5.3 <content [facility] [Moles/volume] in styleCode="Bold"> [facility] Serum or Plasma Potassium Medical </content>3.8 Center MEQ/L<content styleCode="Italic s"> (3.5-5.3 MEQ/L)</content> Sodium 137-145 <content [facility] [Moles/volume] in styleCode="Bold"> [facility] Serum or Plasma Sodium Medical </content>141 Center MEQ/L<content styleCode="Italic s"> (137-145 MEQ/L)</content> Creatinine 0.5-1.3 <content [facility] [Mass/volume] in styleCode="Bold"> Dar[facility] hs Serum or Plasma Creatinine Medical </content>0.8 Center MG/DL<content styleCode="Italic s"> (0.5-1.3 MG/DL)</content> UNK > 60 <content [facility] styleCode="Bold"> [place] EGFR </content>84 Medical GFR<content Center styleCode="Italic s"> (> 60 GFR)</content> Carbon dioxide, 22-30 <content [facility] total styleCode="Bold"> [place] [Moles/volume] in Carbon Dioxide Medical Serum or Plasma </content>22 Center MEQ/L<content styleCode="Italic s"> (22-30 MEQ/L)</content> Glucose 74-106 Above high <content [facility] [Mass/volume] in normal styleCode="Bold"> [facility] hs Serum or Plasma Glucose Medical </content>107 Center MG/DL H<content styleCode="Italic s"> (74-106 MG/DL)</content> Calcium 8.4-10. <content [facility] [Mass/volume] in 2 styleCode="Bold"> [facility] hs Serum or Plasma Calcium Medical </content>9.1 Center MG/DL<content styleCode="Italic s"> (8.4-10.2 MG/DL)</content> UNK 7-17 <content [facility] styleCode="Bold"> [place] BUN </content>13 Medical MG/DL<content Center styleCode="Italic s"> (7-17 MG/DL)</content> Alanine 7-30 <content [facility] aminotransferase styleCode="Bold"> Dar[place] hs [Enzymatic Alanine Medical activity/volume] Aminotransferase Center in Serum or Plasma (ALT) </content>13 IU/L<content styleCode="Italic s"> (7-30 IU/L)</content> Aspartate 14-36 <content [facility] aminotransferase styleCode="Bold"> Dar[place] hs [Enzymatic Aspartate Medical activity/volume] Aminotransferase Center in Serum or Plasma (AST) </content>29 IU/L<content styleCode="Italic s"> (14-36 IU/L)</content> Alkaline 38-126 <content [facility] phosphatase styleCode="Bold"> [place] [Enzymatic Alkaline Medical activity/volume] Phosphatase (ALP) Cente r in Serum or Plasma </content>57 IU/L<content styleCode="Italic s"> (38-126 IU/L)</content> Albumin 3.5-5.0 <content [facility] [Mass/volume] in styleCode="Bold"> [facility] hs Serum or Plasma Albumin Medical </content>4.2 Center G/DL<content styleCode="Italic s"> (3.5-5.0 G/DL)</content> Bilirubin.total 0.2-1.3 Below low <content [facility] [Mass/volume] in normal styleCode="Bold"> [place] hs Serum or Plasma Bilirubin Total Medical </content>< 0.2 Center MG/DL L<content styleCode="Italic s"> (0.2-1.3 MG/DL)</content> ID Date Data Source Urinalysis.[id number] 05/10/2019 09:15:00 PM EDT [facility] 0 Name Value Range Interpretation Description Data Sup porting Code Source(s) Document(s ) Glucose NEGATIVE <content [facility] [Mass/volume] styleCode="Jonatan Doshi in Urine by d">Urine Medical Test strip Glucose Center </content>NEGA TIVE MG/DL<content styleCode="Emily lics"> (NEGATIVE MG/DL)</conten t> UNK CLEAR <content Saint styleCode="[facility] d">Urine Medical Clarity Center </content>EDU R <content styleCode="Emily lics"> (CLEAR )</content> Ketones NEGATIVE <content [facility] [Mass/volume] styleCode="Jonatan Doshi in Urine by d">Urine Medical Test strip Ketone Center </content>NEGA TIVE MG/DL<content styleCode="Emily lics"> (NEGATIVE MG/DL)</conten t> Color of Urine YELLOW <content Saint styleCode="[facility] d">Color, Medical Urine Center </content>YELL OW <content styleCode="Emily lics"> (YELLOW )</content> UNK NEGATIVE <content [facility] styleCode="Jonatan Claires d">Urine Medical Bilirubin Center </content>NEGA TIVE <content styleCode="Emily lics"> (NEGATIVE )</content> Specific 1.015-1.02 Below low normal <content [facility] gravity of 5 styleCode="Jonatan Doshi Urine by Test d">Urine Medical strip Specific Center [place] </content><= 1.005 L<content styleCode="Emily lics"> (1.015-1.025 )</content> Hemoglobin NEGATIVE <content [facility] [Presence] in styleCode="Jonatan Doshi Urine by Test d">Urine Blood Medical strip </content>TRAC Center E <content styleCode="Emily lics"> (NEGATIVE )</content> pH of Urine by 4.5-8.0 <content [facility] Test strip styleCode="Jonatan Claires d">Urine pH Medical </content>6.5 Center <content styleCode="Emily lics"> (4.5-8.0 )</content> Nitrite NEGATIVE <content [facility] [Presence] in styleCode="Jonatan Doshi Urine by Test d">Urine Medical strip Nitrite Center </content>NEGA TIVE <content styleCode="Emily lics"> (NEGATIVE )</content> Urobilinogen 0.2-1.0 <content [facility] [Units/volume] styleCode="Jonatan Claires in Urine by d">Urine Medical Test strip Urobilinogen Center </content>0.2 MG/DL<content styleCode="Emily lics"> (0.2-1.0 MG/DL)</conten t> Protein NEGATIVE <content [facility] [Mass/volume] styleCode="Jonatan Doshi in Urine by d">Urine Medical Test strip Protein Center </content>NEGA TIVE MG/DL<content styleCode="Emily lics"> (NEGATIVE MG/DL)</conten t> Leukocyte NEGATIVE <content [facility] esterase styleCode="Jonatan Doshi [Presence] in d">Urine Medical Urine by Test Leukocyte Center strip </content>NEGA TIVE <content styleCode="Emily lics"> (NEGATIVE )</content> UNK 0-3 <content Saint styleCode="[facility] d">Urine Red Medical Blood Cell Center </content>0-3 HPF<content styleCode="Emily lics"> (0-3 HPF)</content> UNK <content Saint styleCode="Jonatan Claires d">Epithelial Medical Cell Center </content>2-5 LPF (Reference Range: not available)<br/ > ID Date Data Source CHMROUTINECCDA.[id number] 05/10/2019 09:15:00 PM EDT [facility] -0400 Name Value Range Interpretation Description Data Sup porting Code Source(s) Document(s ) Cannabinoids <content [facility] [Presence] in styleCode="Jonatan Doshi Urine by Screen d">Cannabinoid Medical method >50 ng/mL s Center </content>NEGA TIVE NG/ML (Reference Range: not available)<br/ > ID Date Data Source Liver 05/10/2019 09:08:[address] [facility] Profile.[id number] Name Value Range Interpretation Description Data Sup porting Code Source(s) Document(s ) Aspartate 14-36 <content [facility] aminotransferase styleCode="Bold"> Darin hs [Enzymatic Aspartate Medical activity/volume] Aminotransferase Center in Serum or Plasma (AST) </content>29 IU/L<content styleCode="Italic s"> (14-36 IU/L)</content> Bilirubin.total 0.2-1.3 <content [facility] [Mass/volume] in styleCode="Bold"> Dar[place] hs Serum or Plasma Bilirubin Total Medical </content>0.4 Center MG/DL<content styleCode="Italic s"> (0.2-1.3 MG/DL)</content> Alkaline 38-126 <content [facility] phosphatase styleCode="Bold"> [place] [Enzymatic Alkaline Medical activity/volume] Phosphatase (ALP) Cente r in Serum or Plasma </content>66 IU/L<content styleCode="Italic s"> (38-126 IU/L)</content> UNK 0.0-0.3 <content [facility] styleCode="Bold"> [place] Bilirubin, Direct Medical </content>< 0.2 Center MG/DL<content styleCode="Italic s"> (0.0-0.3 MG/DL)</content> Albumin 3.5-5.0 <content [facility] [Mass/volume] in styleCode="Bold"> Dar[place] hs Serum or Plasma Albumin Medical </content>4.8 Center G/DL<content styleCode="Italic s"> (3.5-5.0 G/DL)</content> Alanine 7-30 <content [facility] aminotransferase styleCode="Bold"> Dar[place] hs [Enzymatic Alanine Medical activity/volume] Aminotransferase Center in Serum or Plasma (ALT) </content>19 IU/L<content styleCode="Italic s"> (7-30 IU/L)</content> ID Date Data Source HematologyRou.[id number] 05/10/2019 09:08:00 PM EDT [facility] 0400 Name Value Range Interpretation Description Data Sup porting Code Source(s) Document(s ) Leukocytes 4.4-11.0 <content [facility] [#/volume] in styleCode="[place] [place] Blood by ">White Blood Medical Automated count Cell Count Center </content>8.85 KCUMM<content styleCode="Ital ics"> (4.4-11.0 KCUMM)</content > Hemoglobin 12.3-16. Below low normal <content [facility] [Mass/volume] in 0 styleCode="Bold [place] Blood ">Hemoglobin Medical </content>11.9 Center G/DL L<content styleCode="Ital ics"> (12.3-16.0 G/DL)</content> Hematocrit 36.0-46. <content [facility] [Volume 0 styleCode="[place]old [place] Fraction] of ">Hematocrit Medical Blood by </content>36.2 Center Automated count %<content styleCode="Ital ics"> (36.0-46.0 %)</content> Erythrocyte mean 32.0-37. <content [facility] corpuscular 0 styleCode="[place] hemoglobin ">Mean Corpus. Medical concentration Hgb Center [Mass/volume] by Concentration Automated count (MCHC) </content>32.9 G/DL<content styleCode="Ital ics"> (32.0-37.0 G/DL)</content> Erythrocyte mean 80.0-100 <content [facility] corpuscular .0 styleCode="[place] [place] volume [Entitic ">Mean Medical volume] by Corpuscular Center Automated count Volume </content>90.7 FL<content styleCode="Ital ics"> (80.0-100.0 FL)</content> Erythrocyte mean 26.0-34. <content [facility] corpuscular 0 styleCode="[place] [place] hemoglobin ">Mean Medical [Entitic mass] Corposcular Center by Automated Hemoglobin count </content>29.8 PG<content styleCode="Ital ics"> (26.0-34.0 PG)</content> Erythrocytes 4.0-5.1 Below low normal <content [facility] [#/volume] in styleCode="Bold [place] Blood by ">Red Blood Medical Automated count Cell Count Center </content>3.99 MCUMM L<content styleCode="Ital ics"> (4.0-5.1 MCUMM)</content > Platelet mean 8.0-11.0 <content [facility] volume [Entitic styleCode="[place]old [place] volume] in Blood ">Mean Platelet Medical by Automated Volume Center count </content>10.1 FL<content styleCode="Ital ics"> (8.0-11.0 FL)</content> Erythrocyte 11.5-14. <content [facility] distribution 5 styleCode="Bold [place] width [Ratio] by ">Red Cell Medical Automated count Distribution Center Width </content>13.5 %<content styleCode="Ital ics"> (11.5-14.5 %)</content> Platelets 130-400 <content [facility] [#/volume] in styleCode="Bold [place] Blood by ">Platelet Medical Automated count Count Center </content>254 KCUMM<content styleCode="Ital ics"> (130-400 KCUMM)</content > UNK 0.0 <content [facility] styleCode="[facility] [place] ">Nucleated Red Medical Blood Cell Center Count </content>0.00 KCUMM<content styleCode="Ital ics"> (0.0 KCUMM)</content > UNK 0 <content [facility] styleCode="[facility]old [place] ">Nucleated Red Medical Blood Cell Center </content>0.0 /100<content styleCode="Ital ics"> (0 /100)</content> ID Date Data Source GFR(Creatinine).[id number] 05/10/2019 09:08:00 PM EDT [facility] 0-0400 Name Value Range Interpretation Code Description Data Layne rce(s) Supporting Document(s ) UNK > 60 <content [facility] styleCode="Bold"> Medical Cent er EGFR </content>84 GFR<content styleCode="Italic s"> (> 60 GFR)</content> ID Date Data Source BMP.[id number] 05/10/2019 09:08:00 PM EDT [facility] Name Value Range Interpretation Description Data Sup porting Code Source(s) Document(s ) Sodium 137-145 <content [facility] [Moles/volume] in styleCode="Bold"> [facility] phs Serum or Plasma Sodium Medical </content>142 Center MEQ/L<content styleCode="Italic s"> (137-145 MEQ/L)</content> UNK 7-17 <content [facility] styleCode="Bold"> [place] BUN </content>8 Medical MG/DL<content Center styleCode="Italic s"> (7-17 MG/DL)</content> Carbon dioxide, 22-30 Below low <content [facility] total normal styleCode="Bold"> [place] [Moles/volume] in Carbon Dioxide Medical Serum or Plasma </content>18 Center MEQ/L L<content styleCode="Italic s"> (22-30 MEQ/L)</content> Creatinine 0.5-1.3 <content [facility] [Mass/volume] in styleCode="Bold"> Darin hs Serum or Plasma Creatinine Medical </content>0.8 Center MG/DL<content styleCode="Italic s"> (0.5-1.3 MG/DL)</content> Chloride 98-107 <content [facility] [Moles/volume] in styleCode="Bold"> [facility] Serum or Plasma Chloride Medical </content>104 Center MEQ/L<content styleCode="Italic s"> (98-107 MEQ/L)</content> Glucose 74-106 Above high <content [facility] [Mass/volume] in normal styleCode="Bold"> Darin hs Serum or Plasma Glucose Medical </content>110 Center MG/DL H<content styleCode="Italic s"> (74-106 MG/DL)</content> Potassium 3.5-5.3 <content [facility] [Moles/volume] in styleCode="Bold"> [facility] Serum or Plasma Potassium Medical </content>3.7 Center MEQ/L<content styleCode="Italic s"> (3.5-5.3 MEQ/L)</content> Alkaline 38-126 <content [facility] phosphatase styleCode="Bold"> [facility] [Enzymatic Alkaline Medical activity/volume] Phosphatase (ALP) Cente r in Serum or Plasma </content>66 IU/L<content styleCode="Italic s"> (38-126 IU/L)</content> UNK > 60 <content [facility] styleCode="Bold"> [facility] EGFR </content>84 Medical GFR<content Center styleCode="Italic s"> (> 60 GFR)</content> Alanine 7-30 <content [facility] aminotransferase styleCode="Bold"> Dar[place] hs [Enzymatic Alanine Medical activity/volume] Aminotransferase Center in Serum or Plasma (ALT) </content>19 IU/L<content styleCode="Italic s"> (7-30 IU/L)</content> Aspartate 14-36 <content [facility] aminotransferase styleCode="Bold"> Dar[place] hs [Enzymatic Aspartate Medical activity/volume] Aminotransferase Center in Serum or Plasma (AST) </content>29 IU/L<content styleCode="Italic s"> (14-36 IU/L)</content> Bilirubin.total 0.2-1.3 <content [facility] [Mass/volume] in styleCode="Bold"> [place] hs Serum or Plasma Bilirubin Total Medical </content>0.4 Center MG/DL<content styleCode="Italic s"> (0.2-1.3 MG/DL)</content> Calcium 8.4-10. <content [facility] [Mass/volume] in 2 styleCode="Bold"> Dar[place] hs Serum or Plasma Calcium Medical </content>9.6 Center MG/DL<content styleCode="Italic s"> (8.4-10.2 MG/DL)</content> Albumin 3.5-5.0 <content [facility] [Mass/volume] in styleCode="Bold"> Dar[place] hs Serum or Plasma Albumin Medical </content>4.8 Center G/DL<content styleCode="Italic s"> (3.5-5.0 G/DL)</content> ID Date Data Source Urinalysis.[id number] 04/23/2019 04:01:00 AM EDT [facility] 0 Name Value Range Interpretation Description Data Sup porting Code Source(s) Document(s ) UNK CLEAR <content Saint styleCode="Jonatan Claires d">Urine Medical Clarity Center </content>EDU R <content styleCode="Emily lics"> (CLEAR )</content> Color of Urine YELLOW <content [facility] styleCode="Jonatan [place] d">Color, Medical Urine Center </content>YELL OW <content styleCode="Emily lics"> (YELLOW )</content> Ketones NEGATIVE <content [facility] [Mass/volume] styleCode="Jonatan Doshi in Urine by d">Urine Medical Test strip Ketone Center </content>NEGA TIVE MG/DL<content styleCode="Emily lics"> (NEGATIVE MG/DL)</conten t> Specific 1.015-1.02 Above high <content [facility] gravity of 5 normal styleCode="Jonatan Doshi Urine by Test d">Urine Medical strip Specific Center [place] </content>>= 1.030 H<content styleCode="Emily lics"> (1.015-1.025 )</content> UNK NEGATIVE <content Saint styleCode="Jonatan Claires d">Urine Medical Bilirubin Center </content>NEGA TIVE <content styleCode="Emily lics"> (NEGATIVE )</content> Hemoglobin NEGATIVE <content [facility] [Presence] in styleCode="Jonatan Doshi Urine by Test d">Urine Blood Medical strip </content>SMAL Center L <content styleCode="Emily lics"> (NEGATIVE )</content> Glucose NEGATIVE <content [facility] [Mass/volume] styleCode="Jonatan Claires in Urine by d">Urine Medical Test strip Glucose Center </content>NEGA TIVE MG/DL<content styleCode="Emily lics"> (NEGATIVE MG/DL)</conten t> pH of Urine by 4.5-8.0 <content [facility] Test strip styleCode="Jonatan [place] d">Urine pH Medical </content>5.5 Center <content styleCode="Emily lics"> (4.5-8.0 )</content> Protein NEGATIVE <content [facility] [Mass/volume] styleCode="Jonatan Doshi in Urine by d">Urine Medical Test strip Protein Center </content>NEGA TIVE MG/DL<content styleCode="Emily lics"> (NEGATIVE MG/DL)</conten t> Leukocyte NEGATIVE <content [facility] esterase styleCode="Jonatan Doshi [Presence] in d">Urine Medical Urine by Test Leukocyte Center strip </content>NEGA TIVE <content styleCode="Emily lics"> (NEGATIVE )</content> Nitrite NEGATIVE <content [facility] [Presence] in styleCode="Jonatan Doshi Urine by Test d">Urine Medical strip Nitrite Center </content>NEGA TIVE <content styleCode="Emily lics"> (NEGATIVE )</content> Urobilinogen 0.2-1.0 <content [facility] [Units/volume] styleCode="Jonatan Doshi in Urine by d">Urine Medical Test strip Urobilinogen Center </content>0.2 MG/DL<content styleCode="Emily lics"> (0.2-1.0 MG/DL)</conten t> UNK 0-3 <content [facility] styleCode="Jonatan Claires d">Urine Red Medical Blood Cell Center </content>0-3 HPF<content styleCode="Emily lics"> (0-3 HPF)</content> UNK 0-3 <content Saint styleCode="Jonatan Claires d">Urine White Medical Blood Cell Center </content>0-3 HPF<content styleCode="Emily lics"> (0-3 HPF)</content> UNK NEGATIVE <content Saint styleCode="Jonatan Claires d">Urine Medical Bacteria Center </content>FEW HPF<content styleCode="Emily lics"> (NEGATIVE HPF)</content> UNK <content [facility] styleCode="[place] [place] d">Epithelial Medical Cell Center </content>5 - 10 LPF (Reference Range: not available)<br/ > ID Date Data Source CHMROUTINECCDA.[id number] 04/23/2019 04:01:00 AM EDT [facility] -0400 Name Value Range Interpretation Description Data Sup porting Code Source(s) Document(s ) Cannabinoids <content [facility] [Presence] in styleCode="Jonatan [facility] Urine by Screen d">Cannabinoid Medical method >50 ng/mL s Center </content>NEGA TIVE NG/ML (Reference Range: not available)<br/ > ID Date Data Source Liver 04/23/2019 02:57:[address] [facility] Profile.[id number] Name Value Range Interpretation Description Data Sup porting Code Source(s) Document(s ) Alkaline 38-126 <content [facility] phosphatase styleCode="Bold"> [place] [Enzymatic Alkaline Medical activity/volume] Phosphatase (ALP) Cente r in Serum or Plasma </content>63 IU/L<content styleCode="Italic s"> (38-126 IU/L)</content> Aspartate 14-36 Above high <content [facility] aminotransferase normal styleCode="Bold"> Dar[place] hs [Enzymatic Aspartate Medical activity/volume] Aminotransferase Center in Serum or Plasma (AST) </content>58 IU/L H<content styleCode="Italic s"> (14-36 IU/L)</content> Alanine 7-30 <content [facility] aminotransferase styleCode="Bold"> Darin hs [Enzymatic Alanine Medical activity/volume] Aminotransferase Center in Serum or Plasma (ALT) </content>15 IU/L<content styleCode="Italic s"> (7-30 IU/L)</content> Albumin 3.5-5.0 <content [facility] [Mass/volume] in styleCode="Bold"> Darin hs Serum or Plasma Albumin Medical </content>4.8 Center G/DL<content styleCode="Italic s"> (3.5-5.0 G/DL)</content> UNK 0.0-0.3 <content [facility] styleCode="Bold"> [place] Bilirubin, Direct Medical </content>< 0.2 Center MG/DL<content styleCode="Italic s"> (0.0-0.3 MG/DL)</content> Bilirubin.total 0.2-1.3 <content [facility] [Mass/volume] in styleCode="Bold"> Dar[place] hs Serum or Plasma Bilirubin Total Medical </content>0.4 Center MG/DL<content styleCode="Italic s"> (0.2-1.3 MG/DL)</content> ID Date Data Source HematologyRou.[id number] 04/23/2019 02:57:00 AM EDT [facility] 0400 Name Value Range Interpretation Description Data Sup porting Code Source(s) Document(s ) Leukocytes 4.4-11.0 Above high <content [facility] [#/volume] in normal styleCode="Bold [place] Blood by ">White Blood Medical Automated count Cell Count Center </content>11.25 KCUMM H<content styleCode="Ital ics"> (4.4-11.0 KCUMM)</content > Erythrocyte mean 26.0-34. <content [facility] corpuscular 0 styleCode="Bold [place] hemoglobin ">Mean Medical [Entitic mass] Corposcular Center by Automated Hemoglobin count </content>30.6 PG<content styleCode="Ital ics"> (26.0-34.0 PG)</content> Hematocrit 36.0-46. <content [facility] [Volume 0 styleCode="Bold [place] Fraction] of ">Hematocrit Medical Blood by </content>39.8 Center Automated count %<content styleCode="Ital ics"> (36.0-46.0 %)</content> Erythrocytes 4.0-5.1 <content [facility] [#/volume] in styleCode="Bold [place] Blood by ">Red Blood Medical Automated count Cell Count Center </content>4.47 MCUMM<content styleCode="Ital ics"> (4.0-5.1 MCUMM)</content > Erythrocyte mean 80.0-100 <content [facility] corpuscular .0 styleCode="Bold [place] volume [Entitic ">Mean Medical volume] by Corpuscular Center Automated count Volume </content>89.0 FL<content styleCode="Ital ics"> (80.0-100.0 FL)</content> Hemoglobin 12.3-16. <content [facility] [Mass/volume] in 0 styleCode="Bold [place] Blood ">Hemoglobin Medical </content>13.7 Center G/DL<content styleCode="Ital ics"> (12.3-16.0 G/DL)</content> Erythrocyte mean 32.0-37. <content [facility] corpuscular 0 styleCode="Bold [place] hemoglobin ">Mean Corpus. Medical concentration Hgb Center [Mass/volume] by Concentration Automated count (MCHC) </content>34.4 G/DL<content styleCode="Ital ics"> (32.0-37.0 G/DL)</content> UNK 0 <content [facility] styleCode="Bold [place] ">Nucleated Red Medical Blood Cell Center </content>0.0 /100<content styleCode="Ital ics"> (0 /100)</content> Erythrocyte 11.5-14. <content [facility] distribution 5 styleCode="Bold [place] width [Ratio] by ">Red Cell Medical Automated count Distribution Center Width </content>13.3 %<content styleCode="Ital ics"> (11.5-14.5 %)</content> Platelets 130-400 <content [facility] [#/volume] in styleCode="Bold [place] Blood by ">Platelet Medical Automated count Count Center </content>253 KCUMM<content styleCode="Ital ics"> (130-400 KCUMM)</content > Platelet mean 8.0-11.0 <content [facility] volume [Entitic styleCode="Bold [place] volume] in Blood ">Mean Platelet Medical by Automated Volume Center count </content>10.4 FL<content styleCode="Ital ics"> (8.0-11.0 FL)</content> UNK 0.0 <content [facility] styleCode="Bold [place] ">Nucleated Red Medical Blood Cell Center Count </content>0.00 KCUMM<content styleCode="Ital ics"> (0.0 KCUMM)</content > ID Date Data Source GFR(Creatinine).[id number] 04/23/2019 02:57:00 AM EDT [facility] 0-0400 Name Value Range Interpretation Code Description Data Layne rce(s) Supporting Document(s ) UNK > 60 <content [facility] styleCode="Bold"> Medical Cent er EGFR </content>65 GFR<content styleCode="Italic s"> (> 60 GFR)</content> ID Date Data Source [facility].[id number] 04/23/2019 02:57:00 AM EDT [facility] Name Value Range Interpretation Description Data Sup porting Code Source(s) Document(s ) Sodium 137-145 <content [facility] [Moles/volume] in styleCode="Bold"> [place] phs Serum or Plasma Sodium Medical </content>144 Center MEQ/L<content styleCode="Italic s"> (137-145 MEQ/L)</content> Chloride 98-107 Above high <content [facility] [Moles/volume] in normal styleCode="Bold"> [place] phs Serum or Plasma Chloride Medical </content>109 Center MEQ/L H<content styleCode="Italic s"> (98-107 MEQ/L)</content> UNK 7-17 <content [facility] styleCode="Bold"> [place] BUN </content>10 Medical MG/DL<content Center styleCode="Italic s"> (7-17 MG/DL)</content> Potassium 3.5-5.3 <content Saint [Moles/volume] in styleCode="Bold"> [facility] Serum or Plasma Potassium Medical </content>4.1 Center MEQ/L<content styleCode="Italic s"> (3.5-5.3 MEQ/L)</content> Carbon dioxide, 22-30 <content [facility] total styleCode="Bold"> [place] [Moles/volume] in Carbon Dioxide Medical Serum or Plasma </content>24 Center MEQ/L<content styleCode="Italic s"> (22-30 MEQ/L)</content> Creatinine 0.5-1.3 <content [facility] [Mass/volume] in styleCode="Bold"> [facility] Serum or Plasma Creatinine Medical </content>1.0 Center MG/DL<content styleCode="Italic s"> (0.5-1.3 MG/DL)</content> Alkaline 38-126 <content [facility] phosphatase styleCode="Bold"> [place] [Enzymatic Alkaline Medical activity/volume] Phosphatase (ALP) Cente r in Serum or Plasma </content>63 IU/L<content styleCode="Italic s"> (38-126 IU/L)</content> Alanine 7-30 <content [facility] aminotransferase styleCode="Bold"> [facility] [Enzymatic Alanine Medical activity/volume] Aminotransferase Center in Serum or Plasma (ALT) </content>15 IU/L<content styleCode="Italic s"> (7-30 IU/L)</content> Glucose 74-106 <content [facility] [Mass/volume] in styleCode="Bold"> [facility] hs Serum or Plasma Glucose Medical </content>105 Center MG/DL<content styleCode="Italic s"> (74-106 MG/DL)</content> UNK > 60 <content [facility] styleCode="Bold"> [place] EGFR </content>65 Medical GFR<content Center styleCode="Italic s"> (> 60 GFR)</content> Calcium 8.4-10. <content [facility] [Mass/volume] in 2 styleCode="Bold"> [facility] hs Serum or Plasma Calcium Medical </content>9.6 Center MG/DL<content styleCode="Italic s"> (8.4-10.2 MG/DL)</content> Aspartate 14-36 Above high <content [facility] aminotransferase normal styleCode="Bold"> [facility] [Enzymatic Aspartate Medical activity/volume] Aminotransferase Center in Serum or Plasma (AST) </content>58 IU/L H<content styleCode="Italic s"> (14-36 IU/L)</content> Bilirubin.total 0.2-1.3 <content [facility] [Mass/volume] in styleCode="Bold"> [facility] Serum or Plasma Bilirubin Total Medical </content>0.4 Center MG/DL<content styleCode="Italic s"> (0.2-1.3 MG/DL)</content> Albumin 3.5-5.0 <content [facility] [Mass/volume] in styleCode="Bold"> [facility] hs Serum or Plasma Albumin Medical </content>4.8 Center G/DL<content styleCode="Italic s"> (3.5-5.0 G/DL)</content> Procedure Social History Code Duration Value Status Description Data Source(s ) Smoking 05/10/2020 Daily Smoker completed Daily Smoker [facility] 10:56:00 AM EDT Medical C enter Smoking 05/10/2020 Daily Smoker completed Daily Smoker [facility] 10:48:00 AM EDT Medical C enter Smoking 05/10/2020 Daily Smoker completed Daily Smoker [facility] 10:34:00 AM EDT Medical C enter Caffeine Use 04/24/2020 completed NEXTGEN (Seth nt Details 12:00:[address] [facility]) Smoking 04/24/2020 Unknown if completed Unknown if ever NEXTGEN ( [facility] 12:00:00 AM EDT ever smoked smoked [facility]) Smoking 04/21/2020 Daily Smoker completed Daily Smoker [facility] 01:12:00 PM EDT Medical C enter Smoking 04/21/2020 Daily Smoker completed Daily Smoker [facility] 10:05:00 AM EDT Medical C enter Smoking 04/05/2020 Daily Smoker completed Daily Smoker [facility] 10:45:00 AM EDT Medical C enter Smoking 04/05/2020 Daily Smoker completed Daily Smoker [facility] 10:35:00 AM EDT Medical C enter Smoking 04/04/2020 Daily Smoker completed Daily Smoker [facility] 06:48:00 AM EDT Medical C enter Smoking 04/03/2020 Daily Smoker completed Daily Smoker [facility] 02:32:00 PM EDT Medical C enter Smoking 04/03/2020 Daily Smoker completed Daily Smoker [facility] 02:29:00 PM EDT Medical C enter Smoking 04/03/2020 Daily Smoker completed Daily Smoker [facility] 01:35:00 PM EDT Medical C enter Smoking 02/25/2020 Daily Smoker completed Daily Smoker [facility] 05:38:00 PM EDT Medical C enter Smoking 02/25/2020 Daily Smoker completed Daily Smoker [facility] 05:18:00 PM EDT Medical C enter Smoking 02/25/2020 Daily Smoker completed Daily Smoker [facility] 05:08:00 PM EDT Medical C enter Caffeine Use 01/17/2020 completed NEXTGEN (Seth nt Details 12:00:[address] [facility]) Smoking 01/11/2020 Daily Smoker completed Daily Smoker [facility] 01:34:00 PM EDT Medical C enter Smoking 01/11/2020 Daily Smoker completed Daily Smoker [facility] 01:26:00 PM EDT Medical C enter Smoking 01/11/2020 Daily Smoker completed Daily Smoker [facility] 01:03:00 PM EDT Medical C enter Smoking 01/05/2020 Daily Smoker completed Daily Smoker [facility] 08:16:00 PM EDT Medical C enter Smoking 01/05/2020 Daily Smoker completed Daily Smoker [facility] 07:32:00 PM EDT Medical C enter Smoking 01/05/2020 Daily Smoker completed Daily Smoker [facility] 06:50:00 PM EDT Medical C enter Smoking 12/28/2019 Daily Smoker completed Daily Smoker [facility] 01:23:00 AM EDT Medical C enter Smoking 12/27/2019 Daily Smoker completed Daily Smoker [facility] 08:17:00 PM EDT Medical C enter Smoking 12/27/2019 Daily Smoker completed Daily Smoker [facility] 07:19:00 PM EDT Medical C enter Smoking 12/27/2019 Daily Smoker completed Daily Smoker [facility] 06:52:00 PM EDT Medical C enter Smoking 09/15/2019 Daily Smoker completed Daily Smoker [facility] 07:00:00 AM EST Medical C enter Smoking 09/15/2019 Daily Smoker completed Daily Smoker [facility] 04:28:00 AM EST Medical C enter Smoking 09/15/2019 Daily Smoker completed Daily Smoker [facility] 04:13:00 AM EST Medical C enter Smoking 09/15/2019 Daily Smoker completed Daily Smoker [facility] 04:02:00 AM EST Medical C enter Smoking 07/05/2019 Daily Smoker completed Daily Smoker [facility] 08:32:00 PM EST Medical C enter Smoking 07/05/2019 Daily Smoker completed Daily Smoker [facility] 08:15:00 PM EST Medical C enter Smoking 06/28/2019 Daily Smoker completed Daily Smoker [facility] 10:39:00 PM EST Medical C enter Smoking 06/28/2019 Daily Smoker completed Daily Smoker [facility] 10:21:00 PM EST Medical C enter Smoking 06/15/2019 Daily Smoker completed Daily Smoker [facility] 10:58:00 PM EDT Medical C enter Smoking 06/15/2019 Daily Smoker completed Daily Smoker [facility] 10:46:00 PM EDT Medical C enter Smoking 05/22/2019 Daily Smoker completed Daily Smoker [facility] 05:25:00 PM EDT Medical C enter Smoking 05/10/2019 Daily Smoker completed Daily Smoker [facility] 10:52:00 PM EDT Medical C enter Smoking 05/10/2019 Daily Smoker completed Daily Smoker [facility] 09:04:00 PM EDT Medical C enter Smoking 05/10/2019 Daily Smoker completed Daily Smoker [facility] 09:02:00 PM EDT Medical C enter Smoking 05/10/2019 Daily Smoker completed Daily Smoker [facility] 09:00:00 PM EDT Medical C enter Smoking 04/22/2019 Daily Smoker completed Daily Smoker [facility] 11:23:00 PM EDT Medical C enter Smoking 04/22/2019 Daily Smoker completed Daily Smoker [facility] 11:22:00 PM EDT Medical C enter Smoking 04/06/2019 Daily Smoker completed Daily Smoker [facility] 12:49:00 AM EDT Medical C enter Smoking 04/06/2019 Daily Smoker completed Daily Smoker [facility] 12:19:00 AM EDT Medical C enter Alcohol Use completed NEXTGEN (Alis t [facility]) Smoking Unknown if completed Unknown if ever [facility] ever smoked smoked Medical Cente r Vital Signs ID Date Data Source UNK Name Value Range Interpretation Code Description Data Source(s) Body weight 53.467771 kg 53.532008 kg [facility] Body temperature 36.894742 Lucía 36.288416 Lucía [facility] Respiratory rate 17 /min 17 /min [facility] Oxygen 98 % 98 % [facility] saturation in [facility] Arterial blood Center by Pulse oximetry Heart rate 60 /min 60 /min [facility] Body height 157.748399 cm 157.380420 cm [facility] Diastolic blood 54 mm[Hg] 54 mm[Hg] [facility] pressure Medical Center Systolic blood 115 mm[Hg] 115 mm[Hg] [facility] Body mass index 21.7 kg/m2 21.7 kg/m2 [facility] (BMI) [Ratio] Medical Center Body temperature 36.085288 Lucía 36.378448 Lucía [facility] Respiratory rate 18 /min 18 /min [facility] Oxygen 98 % 98 % [facility] saturation in [facility] Arterial blood Center by Pulse oximetry Heart rate 76 /min 76 /min [facility] Diastolic blood 78 mm[Hg] 78 mm[Hg] [facility] Systolic blood 112 mm[Hg] 112 mm[Hg] [facility] Diastolic blood 52 mmHg 52 mmHg [facility] Systolic blood 112 mmHg 112 mmHg [facility] Respiratory rate 16 bpm 16 bpm [facility] Heart rate 52 bpm 52 bpm [facility] Body temperature 97.3 Fahrenheit 97.3 Fahrenhei t [facility] Diastolic blood 75 mmHg 75 mmHg [facility] Systolic blood 123 mmHg 123 mmHg [facility] Respiratory rate 18 bpm 18 bpm [facility] Heart rate 54 bpm 54 bpm [facility] Body temperature 97.8 Fahrenheit 97.8 Fahrenhei t [facility] Body weight 126 lbs 126 lbs [facility] Diastolic blood 58 mmHg 58 mmHg [facility] Systolic blood 106 mmHg 106 mmHg [facility] Respiratory rate 16 bpm 16 bpm [facility] Heart rate 60 bpm 60 bpm [facility] Body temperature 96.6 Fahrenheit 96.6 Fahrenhei t [facility] Diastolic blood 71 mmHg 71 mmHg [facility] Systolic blood 114 mmHg 114 mmHg [facility] Respiratory rate 18 bpm 18 bpm [facility] Heart rate 55 bpm 55 bpm [facility] Body temperature 96.7 Fahrenheit 96.7 Fahrenhei t [facility] Diastolic blood 79 mmHg 79 mmHg [facility] Systolic blood 133 mmHg 133 mmHg [facility] Respiratory rate 18 bpm 18 bpm [facility] Heart rate 51 bpm 51 bpm [facility] Diastolic blood 68 mmHg 68 mmHg [facility] Systolic blood 118 mmHg 118 mmHg [facility] Respiratory rate 16 bpm 16 bpm [facility] Heart rate 62 bpm 62 bpm [facility] Body temperature 98.2 Fahrenheit 98.2 Fahrenhei t [facility] Diastolic blood 56 mmHg 56 mmHg [facility] Systolic blood 124 mmHg 124 mmHg [facility] Respiratory rate 18 bpm 18 bpm [facility] Heart rate 51 bpm 51 bpm [facility] Body temperature 97.0 Fahrenheit 97.0 Fahrenhei t [facility] Body temperature 36.685662 Lucía 36.755032 Lucía [facility] Respiratory rate 18 /min 18 /min [facility] Oxygen 98 % 98 % [facility] saturation in Medical Arterial blood Center by Pulse oximetry Heart rate 67 /min 67 /min [facility] Diastolic blood 78 mm[Hg] 78 mm[Hg] [facility] Center Systolic blood 126 mm[Hg] 126 mm[Hg] [facility] Respiratory rate 15 /min 15 /min [facility] Oxygen 94 % 94 % [facility] saturation in Medical Arterial blood Center by Pulse oximetry Heart rate 67 /min 67 /min [facility] Diastolic blood 82 mm[Hg] 82 mm[Hg] [facility] Center Systolic blood 102 mm[Hg] 102 mm[Hg] [facility] Respiratory rate 24 /min 24 /min [facility] Oxygen 96 % 96 % [facility] saturation in Medical Arterial blood Center by Pulse oximetry Heart rate 78 /min 78 /min [facility] Diastolic blood 86 mm[Hg] 86 mm[Hg] [facility] Center Systolic blood 102 mm[Hg] 102 mm[Hg] [facility] Body weight 77.971651 kg 77.885706 kg [facility] Body temperature 36.269119 Lucía 36.339655 Lucía [facility] Respiratory rate 17 /min 17 /min [facility] Oxygen 95 % 95 % [facility] saturation in Medical Arterial blood Center by Pulse oximetry Heart rate 72 /min 72 /min [facility] Body height 162.360939 cm 162.369778 cm [facility] Diastolic blood 58 mm[Hg] 58 mm[Hg] [facility] Center Systolic blood 111 mm[Hg] 111 mm[Hg] [facility] Body mass index 29.1 kg/m2 29.1 kg/m2 [facility] (BMI) [Ratio] Medical Center Body temperature 36.929300 Lucía 36.232018 Lucía [facility] Respiratory rate 20 /min 20 /min [facility] Heart rate 70 /min 70 /min [facility] Diastolic blood 56 mm[Hg] 56 mm[Hg] [facility] pressure Medical Center Systolic blood 101 mm[Hg] 101 mm[Hg] [facility] Body weight 58.518867 kg 58.421314 kg [facility] Body temperature 36.869031 Lucía 36.210050 Lucía [facility] Respiratory rate 20 /min 20 /min [facility] Heart rate 83 /min 83 /min [facility] Body height 154.450271 cm 154.467158 cm [facility] Diastolic blood 77 mm[Hg] 77 mm[Hg] [facility] Center Systolic blood 103 mm[Hg] 103 mm[Hg] [facility] Body mass index 24.24 kg/m2 24.24 kg/m2 [facility] (BMI) [Ratio] Medical Center Body temperature 36.459020 Lucía 36.433356 Lucía [facility] Respiratory rate 18 /min 18 /min [facility] Oxygen 99 % 99 % [facility] [place] saturation in Medical Arterial blood Center by Pulse oximetry Heart rate 65 /min 65 /min [facility] Diastolic blood 80 mm[Hg] 80 mm[Hg] [facility] Systolic blood 114 mm[Hg] 114 mm[Hg] [facility] Body temperature 36.935812 Lucía 36.108352 Lucía [facility] Respiratory rate 18 /min 18 /min [facility] Oxygen 100 % 100 % [facility] [place] saturation in Medical Arterial blood Center by Pulse oximetry Heart rate 65 /min 65 /min [facility] Diastolic blood 62 mm[Hg] 62 mm[Hg] [facility] Systolic blood 112 mm[Hg] 112 mm[Hg] [facility] Body temperature 36.681338 Lucía 36.006967 Lucía [facility] Respiratory rate 19 /min 19 /min [facility] Oxygen 95 % 95 % [facility] [place] saturation in Medical Arterial blood Center by Pulse oximetry Heart rate 64 /min 64 /min [facility] Diastolic blood 61 mm[Hg] 61 mm[Hg] [facility] Systolic blood 110 mm[Hg] 110 mm[Hg] [facility] Body weight 51.370747 kg 51.781678 kg [facility] Oxygen 96 % 96 % [facility] [place] saturation in Medical Arterial blood Center by Pulse oximetry Body height 157.629950 cm 157.593646 cm [facility] Body mass index 20.6 kg/m2 20.6 kg/m2 [facility] (BMI) [Ratio] Medical Center Body temperature 36.902808 Lucía 36.134693 Lucía [facility] Respiratory rate 20 /min 20 /min [facility] Heart rate 94 /min 94 /min [facility] Diastolic blood 64 mm[Hg] 64 mm[Hg] [facility] pressure Medical Center Systolic blood 131 mm[Hg] 131 mm[Hg] [facility] Body temperature 36.160342 Lucía 36.931479 Lucía [facility] Respiratory rate 18 /min 18 /min [facility] Oxygen 99 % 99 % [place] saturation in Medical Arterial blood Center by Pulse oximetry Heart rate 79 /min 79 /min [facility] Diastolic blood 80 mm[Hg] 80 mm[Hg] [facility] Systolic blood 125 mm[Hg] 125 mm[Hg] [facility] Body weight 77.899516 kg 77.437664 kg [facility] Body temperature 36.341007 Lucía 36.969495 Lucía [facility] Respiratory rate 17 /min 17 /min [facility] Oxygen 99 % 99 % [place] saturation in Medical Arterial blood Center by Pulse oximetry Heart rate 88 /min 88 /min [facility] Body height 165.449153 cm 165.119682 cm [facility] Diastolic blood 77 mm[Hg] 77 mm[Hg] [facility] Systolic blood 122 mm[Hg] 122 mm[Hg] [facility] Body mass index 28.2 kg/m2 28.2 kg/m2 [facility] (BMI) [Ratio] Medical Center Body weight 51.158086 kg 51.156571 kg [facility] Body temperature 36.852160 Lucía 36.530220 Lucía [facility] Respiratory rate 18 /min 18 /min [facility] Oxygen 98 % 98 % [place] saturation in Medical Arterial blood Center by Pulse oximetry Heart rate 62 /min 62 /min [facility] Body height 154.004611 cm 154.692273 cm [facility] Diastolic blood 76 mm[Hg] 76 mm[Hg] [facility] Center Systolic blood 129 mm[Hg] 129 mm[Hg] [facility] Body mass index 21.2 kg/m2 21.2 kg/m2 [facility] (BMI) [Ratio] Medical Center Body temperature 36.529843 Lucía 36.559930 Lucía [facility] Respiratory rate 18 /min 18 /min [facility] Oxygen 97 % 97 % [facility] [place] saturation in Medical Arterial blood Center by Pulse oximetry Heart rate 82 /min 82 /min [facility] Diastolic blood 78 mm[Hg] 78 mm[Hg] [facility] Center Systolic blood 141 mm[Hg] 141 mm[Hg] [facility] Body temperature 36.347649 Lucía 36.340172 Lucía [facility] Respiratory rate 17 /min 17 /min [facility] Oxygen 100 % 100 % [facility] [place] saturation in Medical Arterial blood Center by Pulse oximetry Heart rate 77 /min 77 /min [facility] Diastolic blood 74 mm[Hg] 74 mm[Hg] [facility] Center Systolic blood 132 mm[Hg] 132 mm[Hg] [facility] Body temperature 36.021112 Lucía 36.064077 Lucía [facility] Respiratory rate 16 /min 16 /min [facility] Oxygen 96 % 96 % [facility] [place] saturation in Medical Arterial blood Center by Pulse oximetry Heart rate 68 /min 68 /min [facility] Diastolic blood 56 mm[Hg] 56 mm[Hg] [facility] Center Systolic blood 110 mm[Hg] 110 mm[Hg] [facility] Body temperature 36.789233 Lucía 36.298154 Lucía [facility] Respiratory rate 19 /min 19 /min [facility] Oxygen 98 % 98 % [facility] [place] saturation in Medical Arterial blood Center by Pulse oximetry Heart rate 86 /min 86 /min [facility] Diastolic blood 66 mm[Hg] 66 mm[Hg] [facility] Center Systolic blood 128 mm[Hg] 128 mm[Hg] [facility] Body weight 63.785491 kg 63.091617 kg [facility] Body temperature 36.037458 Lucía 36.923382 Lucía [facility] Respiratory rate 21 /min 21 /min [facility] Oxygen 100 % 100 % [facility] [place] saturation in Medical Arterial blood Center by Pulse oximetry Heart rate 98 /min 98 /min [facility] Body height 160.606297 cm 160.090355 cm [facility] Diastolic blood 72 mm[Hg] 72 mm[Hg] [facility] pressure Medical Center Systolic blood 112 mm[Hg] 112 mm[Hg] [facility] Body mass index 24.7 kg/m2 24.7 kg/m2 [facility] (BMI) [Ratio] Medical Center Body temperature 36.808102 Lucía 36.026854 Lucía [facility] Respiratory rate 19 /min 19 /min [facility] Oxygen 96 % 96 % [facility] [place] saturation in Medical Arterial blood Center by Pulse oximetry Heart rate 89 /min 89 /min [facility] Diastolic blood 88 mm[Hg] 88 mm[Hg] [facility] pressure [facility] Center Systolic blood 135 mm[Hg] 135 mm[Hg] [facility] Body temperature 36.363287 Lucía 36.637634 Lucía [facility] Respiratory rate 18 /min 18 /min [facility] Oxygen 99 % 99 % [facility] [place] saturation in Medical Arterial blood Center by Pulse oximetry Heart rate 80 /min 80 /min [facility] Diastolic blood 64 mm[Hg] 64 mm[Hg] [facility] Center Systolic blood 111 mm[Hg] 111 mm[Hg] [facility] Body temperature 37.279801 Lucía 37.877610 Lucía [facility] Respiratory rate 17 /min 17 /min [facility] Oxygen 98 % 98 % [facility] [place] saturation in Medical Arterial blood Center by Pulse oximetry Heart rate 99 /min 99 /min [facility] Diastolic blood 54 mm[Hg] 54 mm[Hg] [facility] pressure Medical Center Systolic blood 105 mm[Hg] 105 mm[Hg] [facility] Body temperature 36.907464 Lucía 36.451881 Lucía [facility] Respiratory rate 20 /min 20 /min [facility] Oxygen 99 % 99 % [facility] [place] saturation in Medical Arterial blood Center by Pulse oximetry Heart rate 110 /min 110 /min [facility] Diastolic blood 85 mm[Hg] 85 mm[Hg] [facility] pressure Medical Center Systolic blood 143 mm[Hg] 143 mm[Hg] [facility] Body weight 53.731655 kg 53.658488 kg [facility] Body temperature 36.826468 Lucía 36.624463 Lucía [facility] Respiratory rate 16 /min 16 /min [facility] Oxygen 99 % 99 % [facility] [place] saturation in Medical Arterial blood Center by Pulse oximetry Heart rate 74 /min 74 /min [facility] Diastolic blood 60 mm[Hg] 60 mm[Hg] [facility] Systolic blood 116 mm[Hg] 116 mm[Hg] [facility] Body temperature 37.632655 Lucía 37.864065 Lucía [facility] Respiratory rate 18 /min 18 /min [facility] Oxygen 97 % 97 % [facility] [place] saturation in Medical Arterial blood Center by Pulse oximetry Heart rate 77 /min 77 /min [facility] Diastolic blood 68 mm[Hg] 68 mm[Hg] [facility] Systolic blood 124 mm[Hg] 124 mm[Hg] [facility] Body temperature 36.584272 Lucía 36.081546 Lucía [facility] Respiratory rate 17 /min 17 /min [facility] Oxygen 97 % 97 % [facility] saturation in Medical Arterial blood Center by Pulse oximetry Heart rate 65 /min 65 /min [facility] Diastolic blood 70 mm[Hg] 70 mm[Hg] [facility] Center Systolic blood 127 mm[Hg] 127 mm[Hg] [facility] Body weight 2.847265 kg 2.440092 kg [facility] Body temperature 37.796542 Lucía 37.520348 Lucía [facility] Respiratory rate 18 /min 18 /min [facility] Oxygen 97 % 97 % [facility] [place] saturation in Medical Arterial blood Center by Pulse oximetry Heart rate 60 /min 60 /min [facility] Body height 154.651803 cm 154.548494 cm [facility] Diastolic blood 67 mm[Hg] 67 mm[Hg] [facility] Systolic blood 122 mm[Hg] 122 mm[Hg] [facility] Body mass index 0.9 kg/m2 0.9 kg/m2 [facility] (BMI) [Ratio] Medical Center Body temperature 36.423900 Lucía 36.613618 Lucía [facility] Respiratory rate 18 /min 18 /min [facility] Oxygen 97 % 97 % [facility] saturation in Medical Arterial blood Center by Pulse oximetry Heart rate 92 /min 92 /min [facility] Diastolic blood 86 mm[Hg] 86 mm[Hg] [facility] Systolic blood 136 mm[Hg] 136 mm[Hg] [facility] Body temperature 37.012046 Lucía 37.643612 Lucía [facility] Respiratory rate 19 /min 19 /min [facility] Oxygen 97 % 97 % [facility] saturation in Medical Arterial blood Center by Pulse oximetry Heart rate 106 /min 106 /min [facility] Diastolic blood 89 mm[Hg] 89 mm[Hg] [facility] Systolic blood 138 mm[Hg] 138 mm[Hg] [facility] Body temperature 36.491254 Lucía 36.877578 Lucía [facility] Respiratory rate 18 /min 18 /min [facility] Oxygen 97 % 97 % [facility] saturation in Medical Arterial blood Center by Pulse oximetry Heart rate 89 /min 89 /min [facility] Diastolic blood 92 mm[Hg] 92 mm[Hg] [facility] Systolic blood 136 mm[Hg] 136 mm[Hg] [facility] Body temperature 36.731392 Lucía 36.526120 Lucía [facility] Respiratory rate 19 /min 19 /min [facility] Oxygen 96 % 96 % [facility] saturation in Medical Arterial blood Center by Pulse oximetry Heart rate 94 /min 94 /min [facility] Diastolic blood 108 mm[Hg] 108 mm[Hg] [facility] Center Systolic blood 147 mm[Hg] 147 mm[Hg] [facility] Body temperature 36.900883 Lucía 36.514783 Lucía [facility] Respiratory rate 16 /min 16 /min [facility] Oxygen 97 % 97 % [facility] saturation in Medical Arterial blood Center by Pulse oximetry Heart rate 72 /min 72 /min [facility] Diastolic blood 60 mm[Hg] 60 mm[Hg] [facility] pressure Medical Center Systolic blood 118 mm[Hg] 118 mm[Hg] [facility] Medical Center ID Date Data Source [id number] 04/16/2020 10:00:02 PM [facility] Name Value Range Interpretation Code Description Data Source(s) Body weight Measured 126 lb 126 lb [facility] Patient Treatment Plan of Care Planned Activity Planned Date Details Description Data Source (s) Buprenorphine 8 MG / 04/24/2020 12:00:00 NEXTGEN (Saint Naloxone 2 MG Oral Strip AM [facility] [Suboxone] Center) Lurasidone Hydrochloride 04/24/2020 12:00:00 NEXTGEN (Saint 60 MG Oral Tablet AM [facility] dical [Latuda] Center) Sertraline 100 MG Oral 12/27/2019 12:00:00 NEXTGEN (Saint Tablet [Zoloft] AM [facility]) aripiprazole 15 MG Oral 12/27/2019 12:00:00 NEXTGEN (Saint Tablet [Abilify] AM [facility] aripiprazole 15 MG Oral 10/28/2019 12:00:00 NEXTGEN (Saint Tablet [Abilify] AM [facility]) Sertraline 100 MG Oral 10/28/2019 12:00:00 NEXTGEN (Saint Tablet [Zoloft] AM Health system) aripiprazole 15 MG Oral 08/26/2019 12:00:00 NEXTGEN (Saint Tablet [Abilify] AM [facility]) Naltrexone hydrochloride 08/26/2019 12:00:00 NEXTGEN (Saint 50 MG Oral Tablet AM [facility] dical Center) Sertraline 100 MG Oral 08/26/2019 12:00:00 NEXTGEN (Saint Tablet [Zoloft] AM Health system) aripiprazole 15 MG Oral 07/27/2019 12:00:00 NEXTGEN (Saint Tablet [Abilify] AM [facility] Naltrexone hydrochloride 07/27/2019 12:00:00 NEXTGEN (Saint 50 MG Oral Tablet AM [facility]) Sertraline 100 MG Oral 07/27/2019 12:00:00 NEXTGEN ([facility] Tablet [Zoloft] AM Health system) Sertraline 25 MG Oral 07/27/2019 12:00:00 NEXTGEN (Saint Tablet [Zoloft] [facility]) Naltrexone hydrochloride 06/29/2019 12:00:00 NEXTGEN ([facility] 50 MG Oral Tablet [facility] Mirtazapine 15 MG Oral 06/29/2019 12:00:00 NEXTGEN (Saint Tablet [Remeron] AM [facility] ical [place]) gabapentin 600 MG Oral 06/29/2019 12:00:00 NEXTGEN (Saint Tablet [facility]) 24 HR venlafaxine 75 MG 06/29/2019 12:00:00 NEXTGEN (Saint Extended Release Oral AM [facility] Capsule [Effexor] Center) Sertraline 100 MG Oral 06/29/2019 12:00:00 NEXTGEN ([facility] Tablet [Zoloft] [facility]) aripiprazole 5 MG Oral [facility] Center 24 HR venlafaxine 75 MG [facility] Extended Release Oral Center Capsule Sertraline 50 MG Oral [facility] 200 ACTUAT Albuterol 0.09 [facility] [place] [facility] MG/ACTUAT Metered Dose Cente r Inhaler olanzapine 10 MG Oral [facility] aripiprazole (Abilify [facility] My[facility]ite) 30 mg tablet with Ce nter sensor and patch, Ordered By: Gail Washburn MDDirections: 1 tablet oral daily Mirtazapine 15 MG Oral [facility] Tablet Center 24 HR venlafaxine 75 MG [facility] Extended Release Oral Center Capsule Sertraline 100 MG Oral [facility] 200 ACTUAT Albuterol 0.09 [facility] Medical MG/ACTUAT Metered Dose Cente r Inhaler Sertraline 100 MG Oral [facility] buspirone hydrochloride [facility] 10 MG Oral Tablet Center 24 HR venlafaxine 75 MG [facility] Extended Release Oral Center Capsule gabapentin 300 MG Oral [facility] Center Mirtazapine 15 MG Oral [facility]
[2020-05-14 11:49] VITALS: BMI 24.4
--- NOTE | 2020-05-14 11:55 | HP ---
COWS - Scale Resting Pulse: 0= [place] 80 or Below Sweatin= Chills/Flushing Restless Observation: 1= Difficult to Sit Still Pupil Size: 2= Moderately Dilated Bone or Joint Aches: 2= Severe Diffuse Aches Runny Nose/ Eye Tearin= Runny Nose/Eyes GI Upset > 30mins: 3= Vomiting/Diarrhea Tremor Observation: 2= Slight Tremor Visible Yawning Observation: 1= 1-2x During Session Anxiety or Irritability: 4=Extreme Anxiety Goose Flesh Skin: 0=Smooth Skin COWS Score: 18 CIWA Score Nausea/Vomitin Muscle Tremors: 2 Anxiety: 4-Mod. Anxious/Guarded Agitation: 4-Moderately Restless Paroxysmal Sweats: 5 Orientation: 1-Uncertain about Date Tacttile Disturbances: 0-None Auditory Disturbances: 0-None Visual Disturbances: 0-None Headache: 1-Very Mild CIWA-Ar Total Score: 20 - Admission Criteria OASAS Guidelines: Admission for Medically Managed Detox: Requires at least one of the followin. CIWA greater than 12 2. Seizures within the past 24 hours 3. Delirium tremens within the past 24 hours 4. Hallucinations within the past 24 hours 5. Acute intervention needed for co occurring medical disorder 6. Acute intervention needed for co occurring psychiatric disorder 7. Severe withdrawal that cannot be handled at a lower level of care (continued vomiting, continued diarrhea, abnormal vital signs) requiring intravenous medication and/or fluids 8. Admitting History and Physical - Admission Chief Complaint: Ms. Roldan is a 40 yo woman who presents to [facility] requesting detox from alcohol and heroin. History of Present Illness: Ms. Roldan is a 40 yo woman who presents to [facility] requesting detox from alcohol and heroin. 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 Heroin Substance amount: 12 bags Frequency of use: Daily Substance route: Inhalation (ex: sniffing or snorting) Date of Last Use: 05/13/20 (started age 18) Yes OD, one year ago has Narcan at home Cocaine-Crack Substance amount: $50 Frequency of use: Daily Substance route: Smoking Date of Last Use: 05/13/20 Firstuse age 18y Marijuana/Hashish Substance amount: 2 pulls Frequency of use: Less than 3 times per week Substance route: Smoking Date of Last Use: 05/11/20 First use age 12 y PCP Substance amount: 2 blunts Frequency of use: Less than 3 times per week Substance route: Smoking Date of Last Use: 05/07/20 First use one month ago Nicotine Substance amount: 10 ciggs Frequency of use: Daily Substance route: Smoking Date of Last Use: 05/14/20 first use age 13y Methadone Substance amount: street methadone Frequency of use: Daily Substance route: Oral Date of Last Use: 05/13/20 (since she left the [facility]) Suboxone: tried in past, failed/withdrawal sx History Source: Patient Limitations to Obtaining History: No Limitations Admission [facility] Allergies/Adverse Reactions: Allergies Allergy/AdvReac Type Severity Reaction Status Date / Time No Known Allergies Allergy Verified 05/14/20 11:38 Exam Limitations: No Limitations - Ebola screening Have you traveled outside of the country in the last 21 days: No Have you been sick,other than usual withdrawal symptoms: No Do you have a fever: No - Review of Systems Constitutional: Changes in sleep (trouble falling and staying asleep) EENT: reports: Nose Congestion Respiratory: reports: No Symptoms reported Cardiac: reports: No Symptoms Reported GI: reports: Diarrhea, Nausea : reports: No Symptoms Reported Musculoskeletal: reports: Back Pain, Muscle Pain Integumentary: reports: No Symptoms Reported Neuro: reports: No Symptoms reported Endocrine: reports: No Symptoms Reported Hematology: reports: No Symptoms Reported Psychiatric: reports: Anxious, Depressed (no SI) Patient History - Smoking Cessation Smoking history: Never smoked Have you smoked in the past 12 months: Yes Aproximately how many cigarettes per day: 10 Hx Chewing Tobacco Use: No Initiated information on smoking cessation: Yes 'Breaking Loose' booklet given: 05/14/20 - Substances abused Alcohol Substance route: Oral Frequency: Daily Amount used: 3 PINTS WHISKEY Age of first use: 13 Date of last use: 05/13/20 Heroin Substance route: Inhalation Frequency: Daily Amount used: 12 BAGS Age of first use: 18 Date of last use: 05/13/20 Crack Substance route: Smoking Frequency: 1-2 times per week Amount used: 50 DOLLARS Age of first use: 18 Date of last use: 05/13/20 Marijuana/Hashish Substance route: Smoking Frequency: 1-2 times per week Amount used: 2 PULLS Age of first use: 12 Date of last use: 05/11/20 PCP Substance route: Smoking Frequency: 1-2 times per week Amount used: COUPLE PULLS Age of first use: 40 Date of last use: 05/07/20 Admission Physical Exam [facility] - Physical General Appearance: Yes: Nourished, Mild Distress, Anxious HEENTM: Yes: EOMI, Hearing grossly Normal, Normocephalic, Normal Voice Respiratory: Yes: Lungs Clear, No Respiratory Distress, No Accessory Muscle Use Neck: Yes: Within Normal Limits, Supple Breast: Yes: Breast Exam Deferred Cardiology: Yes: Regular Rhythm, Regular Rate Abdominal: Yes: Normal Bowel Sounds, Non Tender, Flat, Soft Genitourinary: Yes: Other (deferred) Back: Yes: Within Normal Limits Musculoskeletal: Yes: Gait Steady Extremities: Yes: Normal Inspection, Non-Tender Neurological: Yes: Alert, Normal Response Integumentary: Yes: Other (multiple linear scars left forearm, per pt self inflicted in past) - Diagnostic (1) Alcohol dependence with withdrawal, uncomplicated Current Visit: Yes Status: Acute Comment: 1. Admit detox 2. Librium protocol 3. Routine labs 4. Substance use education (2) Opioid withdrawal Current Visit: Yes Status: Acute Comment: 1. Admit, detox, methadone protocol 2. EKG (3) Cocaine use disorder Current Visit: Yes Status: Acute Comment: 1. Substance use education (4) Cannabis use disorder, mild, abuse Current Visit: Yes Status: Acute (5) Nicotine dependence Current Visit: Yes Status: Acute Qualifiers: Nicotine product type: cigarettes Substance use status: uncomplicated Qualified Code(s): F17.210 - Nicotine dependence, cigarettes, uncomplicated Comment: 1. Nicotine replacement therapy (6) Phencyclidine (PCP) use disorder, mild Current Visit: Yes Status: Acute Comment: 1. Substance use education (7) Bipolar disorder Current Visit: Yes Status: Acute Comment: 1. Psychiatry consultation Cleared for Admission [facility] - Detox or Rehab [facility] Level of Care: Medically Managed Detox Regimen/Protocol: Methadone/Librium Breathalyzer - Breathalyzer Breathalyzer: 0 Urine Drug Screen - Test Device Lot number: [id number] Expiration date: 11/29/21 - Control Is test valid?: No - Results Urine drug screen results: THC-Marijuana, POPPY-Cocaine, FEN-Fentanyl, MOP-Opiates Inpatient Rehab Admission - Rehab Decision to Admit Inpatient rehab admission?: No
[2020-05-14] MEDS ORDERED: BISMUTH SUBSALICYLATE 262 MG/15 ML BTL PO PRN (11:56)
[2020-05-14] MEDS ORDERED: MAG HYDROX/AL HYDROX/SIMETH 30 ML UNIT-DOSE CUP PO PRN (11:56)
[2020-05-14] MEDS ORDERED: ONDANSETRON *ODT* 4 MG TABLET SL PRN (11:56)
[2020-05-14] MEDS ORDERED: MENTHOL/PHENOL 1 EACH UD MM PRN (11:56)
[2020-05-14] MEDS ORDERED: ACETAMINOPHEN 325 MG TABLET (FP) PO PRN ×2 (11:56)
[2020-05-14] MEDS ORDERED: MAGNESIUM HYDROX 2400MG/30ML ORAL SUSPENSION 30 ML CUP PO PRN (11:56)
[2020-05-14] MEDS ORDERED: MAGNESIUM CITRATE 300 ML BOTTLE PO PRN (11:56)
[2020-05-14] MEDS ORDERED: cloNIDine HCL 0.1 MG TABLET PO PRN (11:56)
[2020-05-14] MEDS ORDERED: IBUPROFEN 400 MG TABLET (FP) PO PRN (11:56)
[2020-05-14] MEDS ORDERED: NICOTINE POLACRILEX 2 MG GUM BUC PRN (11:56)
[2020-05-14] MEDS ORDERED: METHADONE HCL 10 MG TABLET (FOR DETOX USE ONLY) PO ONE (12:15)
[2020-05-14] MEDS: METHOCARBAMOL 500 MG TABLET PO PRN (13:32)
[2020-05-14] MEDS: chlordiazePOXIDE HCL 25 MG CAPSULE PO PRN (13:32)
[2020-05-14] MEDS: NICOTINE 14 MG/24 HOURS TOPICAL PATCH TD SCH (13:33)
[2020-05-14] MEDS: hydrOXYzine PAMOATE 25 MG CAPSULE (FP) PO SCH ×3 (13:38→22:24)
[2020-05-14 14:06] LABS: HEMATOCRIT 37.2 % (32.4-45.2); HEMOGLOBIN 12.3 GM/dL (10.7-15.3); MCH 28.7 pg (25.7-33.7); MEAN CELL VOLUME 86.9 fl (80-96); MEAN PLT VOLUME 8.7 fl (7.5-11.1); PLATELET COUNT 204 K/MM3 (134-434); RBC 4.28 M/mm3 (3.60-5.2); RDW 16.3 % (11.6-15.6); WHITE BLOOD COUNT 7.1 K/mm3 (4.0-10.0)
--- NOTE | 2020-05-14 14:07 | EKG ---
Test Reason : Blood Pressure : / mmHG Vent. Rate : 040 BPM Atrial Rate : 040 BPM P-R Int : 148 ms QRS Dur : 142 ms QT Int : 532 ms P-R-T Axes : 041 083 093 degrees QTc Int : 433 ms MARKED SINUS BRADYCARDIA RIGHT BUNDLE BRANCH BLOCK ABNORMAL ECG NO PREVIOUS ECGS AVAILABLE Confirmed by HOMER BLACKWELL MD ([id number]) on 05/14/2020 2:07:30 PM Referred By: Confirmed By:HOMER BLACKWELL MD
[2020-05-14 14:16] LABS: ALBUMIN 3.8 g/dl (3.4-5.0); BLOOD UREA NITROGEN 10.2 mg/dL (7-18); CALCIUM 8.9 mg/dL (8.5-10.1); CREATININE 0.9 mg/dL (0.55-1.3); POTASSIUM 4.2 mmol/L (3.5-5.1); TOT PROT 7.5 g/dl (6.4-8.2)
[2020-05-14 14:36] LABS: BILIRUBIN,TOTAL 0.3 mg/dL (0.2-1)
[2020-05-14] MEDS: chlordiazePOXIDE HCL 25 MG CAPSULE PO SCH ×2 (17:17→22:25)
[2020-05-14] MEDS: THIAMINE HCL 100 MG TABLET (FP) PO SCH (22:25)
[2020-05-14] MEDS: MELATONIN 5 MG TABLETS PO SCH (22:25)
[2020-05-15] MEDS: chlordiazePOXIDE HCL 25 MG CAPSULE PO PRN (01:06)
[2020-05-15] MEDS: chlordiazePOXIDE HCL 25 MG CAPSULE PO SCH ×4 (05:56→22:09)
[2020-05-15] MEDS: hydrOXYzine PAMOATE 25 MG CAPSULE (FP) PO SCH ×2 (06:52→10:09)
[2020-05-15] MEDS ORDERED: METHADONE HCL 10 MG TABLET (FOR DETOX USE ONLY) ONE (09:04)
[2020-05-15] MEDS ORDERED: METHADONE HCL 5 MG TABLET (FOR DETOX USE ONLY) ONE (09:05)
[2020-05-15] MEDS ORDERED: METHADONE (DETOX) 20 MG, METHADONE (DETOX) 5 MG PO ONE (10:00)
[2020-05-15] MEDS: PRENATAL VITAMINS W/ FOLIC ACID TABLET (FP) PO SCH (10:09)
[2020-05-15] MEDS: NICOTINE 14 MG/24 HOURS TOPICAL PATCH TD SCH (10:09)
--- NOTE | 2020-05-15 11:33 | CONSULT ---
[facility] Psychiatric Consult - Data Date of interview: 05/15/20 Admission source: [facility] Identifying data: Patient is a 40 year old single female, without children, unemployed, domiciled, but is not currently supported with [facility]. This is one of multiple admissions for patient. Patient admitted to for alcohol, cocaine, and opiate dependence. Substance Abuse History: Smoking Cessation. Smoking history: Never smoked. Have you smoked in the past 12 months: Yes. Aproximately how many cigarettes per day: 10. Hx Chewing Tobacco Use: No. Initiated information on smoking cessation: Yes. 'Breaking Loose' booklet given: 05/14/20. - Substances abused. Alcohol. Substance route: Oral. Frequency: Daily. Amount used: 3 PINTS WHISKEY. Age of first use: 13. Date of last use: 05/13/20. Heroin. Substance route: Inhalation. Frequency: Daily. Amount used: 12 BAGS. Age of first use: 18. Date of last use: 05/13/20. Crack. Substance route: Smoking. Frequency: 1-2 times per week. Amount used: 50 DOLLARS. Age of first use: 18. Date of last use: 05/13/20. Marijuana/Hashish. Substance route: Smoking. Frequency: 1-2 times per week. Amount used: 2 PULLS. Age of first use: 12. Date of last use: 05/11/20. PCP. Substance route: Smoking. Frequency: 1-2 times per week. Amount used: COUPLE PULLS. Age of first use: 40. Date of last use: Medical History: Open heart surgery as a child. Psychiatric History: Patient reports history of multiple psychiatric hospitalizations at [facility] and most recently at [facility] in [place] 2 years ago due to self mutilation behavior via cutting. Diagnosis of Bipolar disorder. Patient reports a history of treatment with the following medications: Seroquel, Zyprexa, trazodone, effexor, topamax, and depakote. Ms. Roldan states that she is currently provided with outpatient psychiatric care at the [facility] and is prescribed Zoloft 150mg daily + latuda 20mg BID. Reports most recently taking her medications several day ago. History of three suicide attempt. At present patient reports feeling sad. Patient denies suicidal/ homicidal ideation. Physical/Sexual Abuse/Trauma History: Not discussed. Psychiatric Findings - Problem List ([place] 1, 2,3) (1) Substance induced mood disorder Current Visit: Yes Status: Acute (2) Alcohol dependence with withdrawal, uncomplicated Current Visit: Yes Status: Acute Comment: 1. Admit detox 2. Librium protocol 3. Routine labs 4. Substance use education (3) Bipolar disorder Current Visit: Yes Status: Chronic Comment: 1. Psychiatry consultation (4) Cannabis use disorder, mild, abuse Current Visit: Yes Status: Acute (5) Cocaine use disorder Current Visit: Yes Status: Acute Comment: 1. Substance use education (6) Nicotine dependence Current Visit: Yes Status: Acute Qualifiers: Nicotine product type: cigarettes Substance use status: uncomplicated Qualified Code(s): F17.210 - Nicotine dependence, cigarettes, uncomplicated Comment: 1. Nicotine replacement therapy (7) Phencyclidine (PCP) use disorder, mild Current Visit: Yes Status: Acute Comment: 1. Substance use education - Initial Treatment Plan Initial Treatment Plan: Psychoeducation provided. Detoxification in progress. Will order Zoloft 100mg + Latuda 20mg BID. Benefits and side effects discussed. Verbal consent given.
[2020-05-15] MEDS: LURASIDONE HCL 20 MG TABLET PO SCH ×2 (12:20→22:09)
[2020-05-15] MEDS: SERTRALINE HCL 50 MG TABLET (FP) PO SCH (12:20)
--- NOTE | 2020-05-15 12:49 | PN ---
S CIWA - CIWA Score Nausea/Vomitin-Mild Nausea/No Vomiting Muscle Tremors: 3 Anxiety: 3 Agitation: 3 Paroxysmal Sweats: No Perspiration Orientation: 1-Uncertain about Date Tacttile Disturbances: 0-None Auditory Disturbances: 0-None Visual Disturbances: 2-Mild Sensitivity Headache: 2-Mild CIWA-Ar Total Score: 15 BHS COWS - Scale Resting Pulse: 0= [place] 80 or Below Sweatin= Chills/Flushing Restless Observation: 0= Sits Still Pupil Size: 1= Pupils >than Normal Bone or Joint Aches: 1= Mild Discomfort Runny Nose/ Eye Tearin= None GI Upset > 30mins: 2= Nausea/Diarrhea Tremor Observation of Outstretched Hands: 2= Slight Tremor Visible Yawning Observation: 1= 1-2x During Session Anxiety or Irritability: 2=Irritable/Anxious Goose Flesh Skin: 3=Piloerection COWS Score: 13 S Progress Note (SOAP) Subjective: 40 years old female was admitted on 05/14/20 for alcohol and opiate withdrawal sx management treating with librium and methadone detox regiments restlessness irritable increase vistaril to 50 mg po Objective: 05/15/20 12:52 Vital Signs - 24 hr 05/14/20 05/14/20 05/14/20 12:54 19:32 20:54 Temperature 96.8 F L 97.3 F L 97.9 F Pulse Rate 41 L 53 L 62 Respiratory 16 18 18 Rate Blood Pressure 110/64 107/60 107/52 L O2 Sat by Pulse 97 99 Oximetry (%) 05/15/20 05/15/20 06:52 09:30 Temperature 97.6 F 96.8 F L Pulse Rate 79 64 Respiratory 18 18 Rate Blood Pressure 99/51 L 101/68 O2 Sat by Pulse 96 96 Oximetry (%) Laboratory Tests 05/14/20 05/14/20 05/14/20 11:35 12:30 12:30 WBC 7.1 RBC 4.28 Hgb 12.3 Hct 37.2 MCV 86.9 MCH 28.7 MCHC 33.0 RDW 16.3 H Plt Count 204 MPV 8.7 Sodium 136 Potassium 4.2 Chloride 103 Carbon Dioxide 31 Anion Gap 2 L BUN 10.2 Creatinine 0.9 Est GFR (CKD-EPI)AfAm 92.05 Est GFR (CKD-EPI)NonAf 79.42 Random Glucose 63 L Calcium 8.9 Total Bilirubin 0.3 AST 19 ALT 20 Alkaline Phosphatase 59 Total Protein 7.5 Albumin 3.8 POC Urine HCG, Qual Negative Syphilis Serology COVID-19 (GUTIERREZ) 05/14/20 05/14/20 12:30 12:30 WBC RBC Hgb Hct MCV MCH MCHC RDW Plt Count MPV Sodium Potassium Chloride Carbon Dioxide Anion Gap BUN Creatinine Est GFR (CKD-EPI)AfAm Est GFR (CKD-EPI)NonAf Random Glucose Calcium Total Bilirubin AST ALT Alkaline Phosphatase Total Protein Albumin POC Urine HCG, Qual Syphilis Serology Non-reactive COVID-19 (GUTIERREZ) Not detected lab noted Assessment: 05/15/20 12:52 alcohol and opiate withdrawal Plan: librium and methadone regiments
[2020-05-15] MEDS ORDERED: ALBUTEROL SO4 HFA INHALER IH PRN (13:39)
[2020-05-15] MEDS: guaiFENesin 200 MG/10 ML 10 ML UNIT-DOSE CUPS PO SCH ×2 (14:15→22:08)
[2020-05-15] MEDS: hydrOXYzine PAMOATE 50 MG CAPSULE (FP) PO SCH ×3 (14:18→23:27)
[2020-05-15] MEDS ORDERED: SUVOREXANT 5 MG TABLET PO ONE (22:00)
[2020-05-15] MEDS: MELATONIN 5 MG TABLETS PO SCH (22:09)
[2020-05-15] MEDS: THIAMINE HCL 100 MG TABLET (FP) PO SCH (22:09)
[2020-05-16] MEDS: hydrOXYzine PAMOATE 50 MG CAPSULE (FP) PO SCH ×2 (00:04→05:28)
[2020-05-16] MEDS: METHOCARBAMOL 500 MG TABLET PO PRN ×2 (02:37→10:12)
[2020-05-16] MEDS: chlordiazePOXIDE HCL 25 MG CAPSULE PO PRN (02:37)
[2020-05-16] MEDS: guaiFENesin 200 MG/10 ML 10 ML UNIT-DOSE CUPS PO SCH (05:28)
[2020-05-16] MEDS: chlordiazePOXIDE HCL 25 MG CAPSULE PO SCH ×2 (05:28→10:12)
[2020-05-16 09:14] VITALS: BP 108/69; PULSE 73; TEMP 97.7
[2020-05-16] MEDS ORDERED: METHADONE HCL 10 MG TABLET (FOR DETOX USE ONLY) PO ONE (10:00)
[2020-05-16] MEDS: NICOTINE 14 MG/24 HOURS TOPICAL PATCH TD SCH (10:11)
[2020-05-16] MEDS: PRENATAL VITAMINS W/ FOLIC ACID TABLET (FP) PO SCH (10:11)
[2020-05-16] MEDS: LURASIDONE HCL 20 MG TABLET PO SCH (10:12)
[2020-05-16] MEDS: SERTRALINE HCL 50 MG TABLET (FP) PO SCH (10:12)
--- NOTE | 2020-05-16 10:14 | PN ---
S CIWA - CIWA Score Nausea/Vomitin-Mild Nausea/No Vomiting Muscle Tremors: 2 Anxiety: 4-Mod. Anxious/Guarded Agitation: 1-Slight > Activity Paroxysmal Sweats: 1-Minimal Palms Moist Orientation: 0-Oriented Tacttile Disturbances: 0-None Auditory Disturbances: 0-None Visual Disturbances: 1-Very Mild Sensitivity Headache: 2-Mild CIWA-Ar Total Score: 12 S COWS - Scale Resting Pulse: 0= [place] 80 or Below Sweatin= Chills/Flushing Restless Observation: 0= Sits Still Pupil Size: 1= Pupils >than Normal Bone or Joint Aches: 1= Mild Discomfort Runny Nose/ Eye Tearin= None GI Upset > 30mins: 2= Nausea/Diarrhea Tremor Observation of Outstretched Hands: 2= Slight Tremor Visible Yawning Observation: 0= None Anxiety or Irritability: 2=Irritable/Anxious Goose Flesh Skin: 0=Smooth Skin COWS Score: 9 S Progress Note (SOAP) Subjective: 40 years old female was admitted on 05/14/20 for alcohol and opiate withdrawal sx management treating with librium and methadone detox regiments feels better today ate breakfast in room social with peers in day room encourage social distancing with male peer Objective: 05/16/20 10:12 Vital Signs - 24 hr 05/15/20 05/15/20 05/15/20 13:28 17:16 20:27 Temperature 98.4 F 97.3 F L 97.5 F L Pulse Rate 67 73 20 L Respiratory 16 20 78 H Rate Blood Pressure 107/58 L 98/61 104/61 O2 Sat by Pulse 97 99 Oximetry (%) 05/16/20 05/16/20 06:37 08:42 Temperature 97.6 F 97.7 F Pulse Rate 72 73 Respiratory 18 18 Rate Blood Pressure 99/56 L 108/69 O2 Sat by Pulse 97 97 Oximetry (%) Laboratory Tests 05/14/20 05/14/20 05/14/20 11:35 12:30 12:30 WBC 7.1 RBC 4.28 Hgb 12.3 Hct 37.2 MCV 86.9 MCH 28.7 MCHC 33.0 RDW 16.3 H Plt Count 204 MPV 8.7 Sodium 136 Potassium 4.2 Chloride 103 Carbon Dioxide 31 Anion Gap 2 L BUN 10.2 Creatinine 0.9 Est GFR (CKD-EPI)AfAm 92.05 Est GFR (CKD-EPI)NonAf 79.42 Random Glucose 63 L Calcium 8.9 Total Bilirubin 0.3 AST 19 ALT 20 Alkaline Phosphatase 59 Total Protein 7.5 Albumin 3.8 POC Urine HCG, Qual Negative Syphilis Serology COVID-19 (GUTIERREZ) 05/14/20 05/14/20 12:30 12:30 WBC RBC Hgb Hct MCV MCH MCHC RDW Plt Count MPV Sodium Potassium Chloride Carbon Dioxide Anion Gap BUN Creatinine Est GFR (CKD-EPI)AfAm Est GFR (CKD-EPI)NonAf Random Glucose Calcium Total Bilirubin AST ALT Alkaline Phosphatase Total Protein Albumin POC Urine HCG, Qual Syphilis Serology Non-reactive COVID-19 (GUTIERREZ) Not detected lab noted Assessment: 05/16/20 10:12 alcohol and opiate withdrawal Plan: librium and methadone regiments
--- NOTE | 2020-05-16 12:32 | DS ---
[facility] Detox Discharge Summary Admission Date: 05/14/20 Discharge Date: 05/16/20 - History Present History: Alcohol Dependence, Opioid Dependence Additional Comments: 40 years old female was admitted on for alcohol and opiate withdrawal sx management treated with librium and methadone detox regiments seen by psychiatrist boby leggett ms hernandez insists to leave the detox unit today due to "feels better" and "needs to go home" to care for her son ms hernandez has arranged with [facility] for [facility]one maintenance that she had 20 mg today and tomorrow appointment with methadone assisted treatment program to titrate the dosage General Appearance: Yes: Nourished, no Distress, mild Anxious HEENTM: Yes: EOMI, Hearing grossly Normal, Normocephalic, Normal Voice Respiratory: Yes: Lungs Clear, No Respiratory Distress, No Accessory Muscle Use Neck: Yes: Within Normal Limits, Supple Breast: Yes: Breast Exam Deferred Cardiology: Yes: Regular Rhythm, Regular Rate Abdominal: Yes: Normal Bowel Sounds, Non Tender, Flat, Soft Genitourinary: Yes: Other (deferred) Back: Yes: Within Normal Limits Musculoskeletal: Yes: Gait Steady Extremities: Yes: Normal Inspection, Non-Tender Neurological: Yes: Alert, Normal Response Integumentary: Yes: Other (multiple linear scars left forearm, per pt self inflicted in past) Pertinent Past History: time for discharge 46 minutes treatment team met with ms hernandez to discuss the benefits of librium and methadone detox regiments completion ms hernandez states that she perfers methadone maintenance program for her opiate abuse treatment ms hernandez prefers returning to [facility] continue behavioral and psychosocial therapies - Physical Exam Results Vital Signs: Vital Signs Temperature 97.7 F 05/16/20 08:42 Pulse Rate 73 05/16/20 08:42 Respiratory Rate 18 05/16/20 08:42 Blood Pressure 108/69 05/16/20 08:42 O2 Sat by Pulse Oximetry (%) 97 05/16/20 08:42 Pertinent Admission Physical Exam Findings: alcohol and methadone withdrawal Vital Signs - 24 hr 05/15/20 05/15/20 05/15/20 13:28 17:16 20:27 Temperature 98.4 F 97.3 F L 97.5 F L Pulse Rate 67 73 20 L Respiratory 16 20 78 H Rate Blood Pressure 107/58 L 98/61 104/61 O2 Sat by Pulse 97 99 Oximetry (%) 05/16/20 05/16/20 06:37 08:42 Temperature 97.6 F 97.7 F Pulse Rate 72 73 Respiratory 18 18 Rate Blood Pressure 99/56 L 108/69 O2 Sat by Pulse 97 97 Oximetry (%) Laboratory Tests 05/14/20 05/14/20 05/14/20 11:35 12:30 12:30 WBC 7.1 RBC 4.28 Hgb 12.3 Hct 37.2 MCV 86.9 MCH 28.7 MCHC 33.0 RDW 16.3 H Plt Count 204 MPV 8.7 Sodium 136 Potassium 4.2 Chloride 103 Carbon Dioxide 31 Anion Gap 2 L BUN 10.2 Creatinine 0.9 Est GFR (CKD-EPI)AfAm 92.05 Est GFR (CKD-EPI)NonAf 79.42 Random Glucose 63 L Calcium 8.9 Total Bilirubin 0.3 AST 19 ALT 20 Alkaline Phosphatase 59 Total Protein 7.5 Albumin 3.8 POC Urine HCG, Qual Negative Syphilis Serology COVID-19 (GUTIERREZ) 05/14/20 05/14/20 12:30 12:30 WBC RBC Hgb Hct MCV MCH MCHC RDW Plt Count MPV Sodium Potassium Chloride Carbon Dioxide Anion Gap BUN Creatinine Est GFR (CKD-EPI)AfAm Est GFR (CKD-EPI)NonAf Random Glucose Calcium Total Bilirubin AST ALT Alkaline Phosphatase Total Protein Albumin POC Urine HCG, Qual Syphilis Serology Non-reactive COVID-19 (GUTIERREZ) Not detected lab noted - Treatment Hospital Course: Detox Protocol Followed, Detoxed Safely, Responded well, Discharged Condition Good, Rehab Referral Accepted Patient has Accepted a Rehab Referral to[facility] - Medication Discharge Medications: Ambulatory Orders Sertraline HCl [Zoloft] 100 mg PO DAILY 05/14/20 - Diagnosis (1) Alcohol dependence with withdrawal, uncomplicated Status: Acute (2) Nicotine dependence Status: Acute Qualifiers: Nicotine product type: cigarettes Substance use status: in withdrawal Qualified Code(s): F17.213 - Nicotine dependence, cigarettes, with withdrawal (3) Opioid withdrawal Status: Acute (4) Bipolar disorder Status: Chronic Qualifiers: Active/Remission status: currently active Current bipolar episode type: mixed Psychotic features: without psychotic features - AMA Did Patient Leave Against Medical Advice: No CIWA Score - CIWA Score Nausea/Vomitin-Mild Nausea/No Vomiting Muscle Tremors: 2 Anxiety: 4-Mod. Anxious/Guarded Agitation: 1-Slight > Activity Paroxysmal Sweats: 1-Minimal Palms Moist Orientation: 0-Oriented Tacttile Disturbances: 0-None Auditory Disturbances: 0-None Visual Disturbances: 0-None Headache: 0-None Present CIWA-Ar Total Score: 9 COWS (PN) - Opiate Withdrawal Resting Pulse: 0= ME 80 or Below Sweatin= No chills or Flushing Restless Observation: 0= Sits Still Pupil Size: 1= Pupils >than Normal Bone or Joint Aches: 1= Mild Discomfort Runny Nose/ Eye Tearin= None GI Upset > 30mins: 1= Stomach Cramp Tremor Observation of Outstretched Hands: 1= Tremor [place], Not Seen Yawning Observation: 0= None Anxiety or Irritability: 1=Feels Anxious/Irritable Goose Flesh Skin: 0=Smooth Skin COWS Score: 5
[2020-05-17] MEDS ORDERED: chlordiazePOXIDE HCL 10 MG CAPSULE PO PRN
[2020-05-17] MEDS ORDERED: chlordiazePOXIDE HCL 10 MG CAPSULE PO SCH (05:00)
[2020-05-17] MEDS ORDERED: METHADONE (DETOX) 10 MG, METHADONE (DETOX) 5 MG PO ONE (10:00)
[2020-05-18] MEDS ORDERED: chlordiazePOXIDE HCL 10 MG CAPSULE PO SCH (05:00)
[2020-05-18] MEDS ORDERED: METHADONE HCL 10 MG TABLET (FOR DETOX USE ONLY) PO ONE (10:00)
[2020-05-19] MEDS ORDERED: chlordiazePOXIDE HCL 10 MG CAPSULE PO ONE (05:00)
[2020-05-19] MEDS ORDERED: METHADONE HCL 5 MG TABLET (FOR DETOX USE ONLY) PO ONE (06:00)
== END 2020-05-16 11:04 | disposition home or self-care (01) | DRG 773 ==
LOC: YASAS 10:39 → Y3N 11:39
PROVIDERS: ADMIT Allergy & Immunology; ATTEND Allergy & Immunology
PROC: HZ2ZZZZ Detoxification Services for Substance Abuse Treatment (ICD-10-PCS; principal; 2020-05-14)
DX: F10.230 Alcohol dependence with withdrawal, uncomplicated (principal); F11.23 Opioid dependence with withdrawal; F14.10 Cocaine abuse, uncomplicated; F12.10 Cannabis abuse, uncomplicated; F16.10 Hallucinogen abuse, uncomplicated; F17.213 Nicotine dependence, cigarettes, with withdrawal; F19.24 Other psychoactive substance dependence with psychoactive substance-induced mood disorder; F31.77 Bipolar disorder, in partial remission, most recent episode mixed; Z56.0 Unemployment, unspecified
CPT/HCPCS: 36415; 80053; 81025; 85027; 86780; 93005; 93010; U0003

== ENCOUNTER 2021-04-30 18:06 | Inpatient (IN) | payer OTHER ==
[2021-04-30 19:41] VITALS: BMI 21.5
[2021-04-30] MEDS ORDERED: MAGNESIUM HYDROX 2400MG/30ML ORAL SUSPENSION 30 ML CUP PO PRN (21:09)
[2021-04-30] MEDS ORDERED: MENTHOL/PHENOL 1 EACH UD MM PRN (21:09)
[2021-04-30] MEDS ORDERED: MAGNESIUM CITRATE 300 ML BOTTLE PO PRN (21:09)
[2021-04-30] MEDS ORDERED: BISMUTH SUBSALICYLATE 524 MG/30 ML PO PRN (21:09)
[2021-04-30] MEDS ORDERED: NICOTINE POLACRILEX 2 MG GUM BUC PRN (21:09)
[2021-04-30] MEDS ORDERED: IBUPROFEN 400 MG TABLET (FP) PO PRN (21:09)
[2021-04-30] MEDS ORDERED: ONDANSETRON *ODT* 4 MG TABLET SL PRN (21:09)
[2021-04-30] MEDS ORDERED: ACETAMINOPHEN 325 MG TABLET (FP) PO PRN ×2 (21:09)
[2021-04-30] MEDS ORDERED: MAG HYDROX/AL HYDROX/SIMETH 30 ML UNIT-DOSE CUP PO PRN (21:09)
[2021-05-01] MEDS: THIAMINE HCL 100 MG TABLET (FP) PO SCH ×2 (02:24→22:21)
[2021-05-01] MEDS: MELATONIN 5 MG TABLETS PO SCH ×2 (02:24→22:21)
[2021-05-01] MEDS: LORazepam 1 MG TABLET PO PRN ×3 (03:03→19:55)
[2021-05-01] MEDS: METHOCARBAMOL 500 MG TABLET PO PRN ×2 (03:05→23:49)
[2021-05-01] MEDS: LORazepam 2 MG TABLET PO SCH ×4 (06:29→22:21)
[2021-05-01] MEDS: PRENATAL VITAMINS W/ FOLIC ACID TABLET (FP) PO SCH (10:32)
[2021-05-01 10:44] LABS: HEMATOCRIT 39.5 % (32.4-45.2); HEMOGLOBIN 13.2 GM/dL (10.7-15.3); MCH 30.5 pg (25.7-33.7); MCHC 33.3 g/dl (32.0-36.0); MEAN CELL VOLUME 91.7 fl (80-96); MEAN PLT VOLUME 8.8 fl (7.5-11.1); PLATELET COUNT 217 10^3/uL (134-434); RBC 4.31 M/mm3 (3.60-5.2); RDW 14.7 % (11.6-15.6); WHITE BLOOD COUNT 6.9 K/mm3 (4.0-10.0)
[2021-05-01 10:52] LABS: ALBUMIN 3.5 g/dl (3.4-5.0); CALCIUM 8.7 mg/dL (8.5-10.1)
[2021-05-01 10:53] LABS: BLOOD UREA NITROGEN 13.3 mg/dL (7-18)
[2021-05-01 10:57] LABS: BILIRUBIN,TOTAL 0.3 mg/dL (0.2-1)
[2021-05-01] MEDS ORDERED: BUPRENORPHINE/NALOXONE 8 MG/2 MG FILM PACKET ONE (11:37)
[2021-05-01] MEDS ORDERED: BUPRENORPHINE/NALOXONE 8 MG/2 MG FILM PACKET SL ONE (12:00)
[2021-05-01] MEDS: BUPRENORPHINE/NALOXONE 8 MG/2 MG FILM PACKET SL SCH ×3 (13:41→22:21)
[2021-05-02] MEDS: LORazepam 1 MG TABLET PO SCH ×2 (05:34→10:06)
[2021-05-02] MEDS: BUPRENORPHINE/NALOXONE 8 MG/2 MG FILM PACKET SL SCH ×2 (05:35→13:16)
[2021-05-02] MEDS: PRENATAL VITAMINS W/ FOLIC ACID TABLET (FP) PO SCH (10:06)
[2021-05-02] MEDS: LORazepam 1 MG TABLET PO PRN (11:55)
[2021-05-02 13:58] VITALS: BP 103/53; PULSE 52; TEMP 96.8
[2021-05-03] MEDS ORDERED: LORazepam 0.5 MG TABLET PO PRN
[2021-05-03] MEDS ORDERED: LORazepam 0.5 MG TABLET PO SCH (05:00)
[2021-05-04] MEDS ORDERED: LORazepam 0.5 MG TABLET PO ONE (05:00)
== END 2021-05-02 15:36 | disposition left against medical advice (07) | DRG 770 ==
LOC: YASAS 18:06 → Y3N 23:18
PROVIDERS: ADMIT Allergy & Immunology; ATTEND Allergy & Immunology
PROC: HZ2ZZZZ Detoxification Services for Substance Abuse Treatment (ICD-10-PCS; principal; 2021-04-30)
DX: F11.20 Opioid dependence, uncomplicated (principal); F10.230 Alcohol dependence with withdrawal, uncomplicated; F14.20 Cocaine dependence, uncomplicated; F16.10 Hallucinogen abuse, uncomplicated; F12.20 Cannabis dependence, uncomplicated; F31.9 Bipolar disorder, unspecified
CPT/HCPCS: 36415; 80053; 81025; 85027; 86780; 93005; 93010; C9803; U0003; U0005

== ENCOUNTER 2021-11-06 01:43 | Inpatient (IN) | payer OTHER ==
[2021-11-06 02:12] VITALS: BMI 21.2
[2021-11-06] MEDS ORDERED: NALOXONE HCL 0.4 MG/ML VIAL IM PRN (02:44)
[2021-11-06] MEDS ORDERED: IBUPROFEN 400 MG TABLET (FP) PO PRN (02:44)
[2021-11-06] MEDS ORDERED: MAG HYDROX/AL HYDROX/SIMETH 30 ML UNIT-DOSE CUP PO PRN (02:44)
[2021-11-06] MEDS ORDERED: NALOXONE (NARCAN) HCL 4 MG/0.1 ML SPRAY NS PRN (02:44)
[2021-11-06] MEDS ORDERED: METHOCARBAMOL 500 MG TABLET PO PRN (02:44)
[2021-11-06] MEDS ORDERED: MAGNESIUM HYDROX 2400MG/30ML ORAL SUSPENSION 30 ML CUP PO PRN (02:44)
[2021-11-06] MEDS ORDERED: NICOTINE POLACRILEX 2 MG GUM BUC PRN (02:44)
[2021-11-06] MEDS ORDERED: guaiFENesin 200 MG/10 ML 10 ML UNIT-DOSE CUPS PO PRN (02:44)
[2021-11-06] MEDS ORDERED: BISMUTH SUBSALICYLATE 524 MG/30 ML PO PRN (02:44)
[2021-11-06] MEDS ORDERED: P-EPHED 60MG/TRIPROLIDI 2.5MG TABLET PO PRN (02:44)
[2021-11-06] MEDS ORDERED: LOPERAMIDE HCL 2 MG CAPSULE PO PRN (02:44)
[2021-11-06] MEDS ORDERED: ACETAMINOPHEN 325 MG TABLET (FP) PO PRN ×2 (02:44)
[2021-11-06] MEDS ORDERED: MENTHOL/PHENOL 1 EACH UD MM PRN (02:44)
[2021-11-06] MEDS ORDERED: MAGNESIUM CITRATE 300 ML BOTTLE PO PRN (02:44)
[2021-11-06] MEDS ORDERED: DICYCLOMINE HCL 10 MG CAPSULE PO PRN (02:44)
[2021-11-06] MEDS ORDERED: ONDANSETRON *ODT* 4 MG TABLET SL PRN (02:44)
[2021-11-06] MEDS ORDERED: methaDONE HCL 10 MG TABLET (FOR DETOX USE ONLY) PO ONE (09:29)
[2021-11-06] MEDS ORDERED: cloNIDine HCL 0.1 MG TABLET PO PRN (09:29)
[2021-11-06] MEDS: NICOTINE 14 MG/24 HOURS TOPICAL PATCH TD SCH (11:01)
[2021-11-06] MEDS: PRENATAL VITAMINS W/ FOLIC ACID TABLET (FP) PO SCH (11:01)
[2021-11-06 11:05] LABS: HEMATOCRIT 37.1 % (32.4-45.2); HEMOGLOBIN 12.2 GM/dL (10.7-15.3); MCH 29.1 pg (25.7-33.7); MCHC 32.8 g/dl (32.0-36.0); MEAN CELL VOLUME 88.7 fl (80-96); MEAN PLT VOLUME 8.2 fl (7.5-11.1); PLATELET COUNT 260 10^3/uL (134-434); RBC 4.18 M/mm3 (3.60-5.2); RDW 15.2 % (11.6-15.6); WHITE BLOOD COUNT 6.7 K/mm3 (4.0-10.0)
[2021-11-06 11:10] LABS: CALCIUM 8.3 mg/dL (8.5-10.1)
[2021-11-06 11:11] LABS: ALBUMIN 3.2 g/dl (3.4-5.0)
[2021-11-06 11:16] LABS: BILIRUBIN,TOTAL 0.3 mg/dL (0.2-1)
[2021-11-06] MEDS: diazePAM 5 MG TABLET PO PRN (15:29)
[2021-11-06] MEDS: MELATONIN 5 MG TABLETS PO SCH (23:07)
[2021-11-06] MEDS: THIAMINE HCL 100 MG TABLET (FP) PO SCH (23:08)
[2021-11-07] MEDS: diazePAM 5 MG TABLET PO PRN ×2 (01:11→10:52)
[2021-11-07] MEDS ORDERED: methaDONE HCL 10 MG TABLET (FOR DETOX USE ONLY) ONE (09:16)
[2021-11-07 10:28] LABS: ALBUMIN 3.1 g/dl (3.4-5.0); BLOOD UREA NITROGEN 12.8 mg/dL (7-18); CALCIUM 8.6 mg/dL (8.5-10.1)
[2021-11-07 10:29] LABS: CREATININE 0.8 mg/dL (0.55-1.3)
[2021-11-07 10:30] LABS: BILIRUBIN,TOTAL 0.5 mg/dL (0.2-1)
[2021-11-07] MEDS: PRENATAL VITAMINS W/ FOLIC ACID TABLET (FP) PO SCH (10:48)
[2021-11-07] MEDS: NICOTINE 14 MG/24 HOURS TOPICAL PATCH TD SCH (10:56)
[2021-11-07] MEDS ORDERED: LORazepam 1 MG TABLET PO PRN (13:12)
[2021-11-07] MEDS: LACTULOSE 20 GM/30 ML UDC (FOR ORAL USE ONLY) PO SCH ×3 (14:21→22:57)
[2021-11-07] MEDS: LORazepam 2 MG TABLET PO SCH ×2 (18:46→22:57)
[2021-11-07] MEDS: THIAMINE HCL 100 MG TABLET (FP) PO SCH (22:57)
[2021-11-07] MEDS: MELATONIN 5 MG TABLETS PO SCH (22:57)
[2021-11-08] MEDS: LORazepam 2 MG TABLET PO SCH ×3 (05:59→19:55)
[2021-11-08] MEDS ORDERED: methaDONE HCL 10 MG TABLET (FOR DETOX USE ONLY) PO ONE (10:00)
[2021-11-08] MEDS: LACTULOSE 20 GM/30 ML UDC (FOR ORAL USE ONLY) PO SCH ×3 (10:19→19:56)
[2021-11-08] MEDS: PRENATAL VITAMINS W/ FOLIC ACID TABLET (FP) PO SCH (10:19)
[2021-11-08] MEDS: NICOTINE 14 MG/24 HOURS TOPICAL PATCH TD SCH (10:20)
[2021-11-08 18:31] VITALS: BP 129/66; PULSE 83; TEMP 96.2
[2021-11-09] MEDS: LACTULOSE 20 GM/30 ML UDC (FOR ORAL USE ONLY) PO SCH (00:03)
[2021-11-09] MEDS: LORazepam 2 MG TABLET PO SCH (00:04)
[2021-11-09] MEDS: THIAMINE HCL 100 MG TABLET (FP) PO SCH (00:04)
[2021-11-09] MEDS: MELATONIN 5 MG TABLETS PO SCH (00:04)
[2021-11-09] MEDS ORDERED: LORazepam 1 MG TABLET PO SCH (05:00)
[2021-11-10] MEDS ORDERED: LORazepam 0.5 MG TABLET PO PRN
[2021-11-10] MEDS ORDERED: LORazepam 0.5 MG TABLET PO SCH (05:00)
[2021-11-10] MEDS ORDERED: methaDONE HCL 10 MG TABLET (FOR DETOX USE ONLY) PO ONE (10:00)
[2021-11-11] MEDS ORDERED: LORazepam 0.5 MG TABLET PO ONE (05:00)
== END 2021-11-09 | disposition left against medical advice (07) | DRG 770 ==
LOC: YASAS 01:43 → Y6N 03:26 → Y3N 11-08 19:47
PROVIDERS: ADMIT Allergy & Immunology; ATTEND Allergy & Immunology
PROC: HZ2ZZZZ Detoxification Services for Substance Abuse Treatment (ICD-10-PCS; principal; 2021-11-06)
DX: F10.230 Alcohol dependence with withdrawal, uncomplicated (principal); F10.231 Alcohol dependence with withdrawal delirium; F11.20 Opioid dependence, uncomplicated; F14.20 Cocaine dependence, uncomplicated; F12.20 Cannabis dependence, uncomplicated; F17.210 Nicotine dependence, cigarettes, uncomplicated; F31.9 Bipolar disorder, unspecified; R79.89 Other specified abnormal findings of blood chemistry; R74.01 Elevation of levels of liver transaminase levels; Z86.69 Personal history of other diseases of the nervous system and sense organs
CPT/HCPCS: 36415; 80053; 81025; 82140; 84450; 84460; 85027; 86780; 87811; C9803-CS; U0003; U0005

== ENCOUNTER 2021-11-08 19:32 | Emergency (ER) | payer OTHER ==
[2021-11-08 19:57] VITALS: BP 133/88; PULSE 97; TEMP 97.9; BMI 21.2
== END 2021-11-08 20:14 | disposition left against medical advice (07) ==
LOC: JER 19:32
DX: Z04.9 Encounter for examination and observation for unspecified reason (principal)
CPT/HCPCS: 99281-25

== ENCOUNTER 2021-11-11 20:31 | Emergency (ER) | payer OTHER ==
[2021-11-11 20:46] VITALS: BP 107/53; PULSE 70; TEMP 98.1; BMI 26.5
== END 2021-11-11 22:17 | disposition left against medical advice (07) ==
LOC: JER 20:31
DX: F19.929 Other psychoactive substance use, unspecified with intoxication, unspecified (principal)
CPT/HCPCS: 99283-25

== ENCOUNTER 2022-01-08 11:32 | Emergency (ER) | payer OTHER ==
[2022-01-08 11:37] VITALS: BP 102/64; PULSE 90; TEMP 98; BMI 24.9
== END 2022-01-08 16:59 | disposition home or self-care (01) ==
LOC: JER 11:32
DX: F11.10 Opioid abuse, uncomplicated (principal)
CPT/HCPCS: 99283-25